=== PATIENT | female | born 1980 | race Caucasian/White ===

== ENCOUNTER → 2016-10-16 | Outpatient (CLI) | payer BC ==
[~2016-10-16] MED LIST: CYCL10TA7 PO; GABA-112 PO; OMEP20CA9 PO; OXYC7.5T78 PO
[2016-10-16 12:29] LABS: BASO % 0.5 %; BASO ABS # 0.04 K/uL (0-0.2); COMPLETE YES; EOS % 1.3 %; HEMATOCRIT 41.2 % (37-47); IG% 0.1 %; LYMPH ABS # 1.35 K/uL (1.2-3.4); MEAN CELL VOLUME 93.2 fL (80-100); MEAN CORPUSCULAR HEMOGLOBIN 32.4 pg (25-34); MEAN CORPUSCULAR HGB CONC 34.7 g/dl (32-36); MONO % 6.6 %; NEUT % 75.5 %; PLATELET COUNT 302 K/uL (130-400); RED BLOOD COUNT 4.42 M/uL (4.2-5.4); WHITE BLOOD COUNT 8.43 K/uL (4.8-10.8)
[2016-10-16 13:13] LABS: CREATININE 0.92 mg/dl (0.60-1.20); TOTAL IRON BINDING CAPACITY 382 mcg/dl (250-450)
[2016-10-16 13:34] LABS: URINE APPEARANCE CLEAR (CLEAR); URINE BILIRUBIN NEG (NEG); URINE COLOR YELLOW; URINE EPITHELIAL CELL AUTO >30 /lpf (0-5); URINE NITRITE NEG (NEG); URINE SPECIFIC GRAVITY 1.018 (1.000-1.030); UROBILINOGEN NEG (NEG)
[2016-10-16 13:52] LABS: MANUAL MICROSCOPIC REQUIRED? NO; REVIEW REQ? NO
== END | disposition home or self-care (01) ==
LOC: C.LAB1850 11:27
PROVIDERS: ATTEND Internal Medicine Rheumatology
DX: M54.16 Radiculopathy, lumbar region (principal); M79.7 Fibromyalgia; R76.8 Other specified abnormal immunological findings in serum; Q79.6 Ehlers-Danlos syndromes; E55.9 Vitamin D deficiency, unspecified

== ENCOUNTER → 2017-04-06 | Outpatient (CLI) | payer BC | END | disposition home or self-care (01) | LOC: C.LAB1850 14:36 | PROVIDERS: ATTEND Internal Medicine Rheumatology | DX: R76.8 Other specified abnormal immunological findings in serum (principal); Q79.6 Ehlers-Danlos syndromes; E55.9 Vitamin D deficiency, unspecified ==

== ENCOUNTER 2019-09-08 06:29 | Observation (INO) ==
--- NOTE | 2019-09-01 22:25 | PAT Medication Instructions ---
Medication Instructions Date of Service September 01, 2019 Home Medications Medication Instructions Recorded baclofen 20 mg tablet 20 mg PO TID #90 tab 04/29/19 gabapentin 600 mg tablet 1,200 mg PO TID 90 Days #540 tab 04/29/19 sumatriptan succinate 100 mg tablet 100 mg PO .COMPLEX 30 Days #9 tab 07/30/19 clindamycin HCl 300 mg capsule 300 mg PO TID 21 Days #63 cap 08/19/19 oxycodone-acetaminophen 5 mg-325 1 tab PO Q4H PRN 3 Days #18 tab 08/19/19 mg tablet propranolol 160 mg capsule,24 160 mg PO HS 30 Days #30 cap 09/01/19 hr,extended release acetaminophen 500 mg capsule 500 mg PO UD PRN baclofen 20 mg tablet 20 mg PO TID calcium citrate 250 mg calcium-vitamin D3 200 unit tablet 1 tab PO DAILY etodolac 500 mg tablet 500 mg PO BID fexofenadine 180 mg tablet 180 mg PO QDL fremanezumab-vfrm 225 mg/1.5 mL subcutaneous syringe 225 mg SUBCUT UD gabapentin 600 mg tablet 1,200 mg PO TID mometasone 50 mcg/actuation nasal spray 1 sprays DAILY multivitamin 1 tab PO DAILY omeprazole 20 mg capsule,delayed release 20 mg PO QAM tramadol 50 mg tablet 50 mg PO UD PRN sumatriptan succinate 100 mg tablet 100 mg PO .COMPLEX clindamycin HCl 300 mg capsule 300 mg PO TID oxycodone-acetaminophen 5 mg-325 mg tablet 1 tab PO Q4H PRN atorvastatin 20 mg PO QPM levothyroxine 50 mcg PO QAM venlafaxine 75 mg PO QPM venlafaxine 150 mg PO QPM propranolol 160 mg capsule,24 hr,extended release 160 mg PO HS Continue as directed fremanezumab-vfrm 225 mg/1.5 mL subcutaneous syringe 225 mg SUBCUT UD clindamycin HCl 300 mg capsule 300 mg PO TID ASK your surgeon for instructions etodolac 500 mg tablet 500 mg PO BID DO NOT take the morning of surgery baclofen 20 mg tablet 20 mg PO TID calcium citrate 250 mg calcium-vitamin D3 200 unit tablet 1 tab PO DAILY fexofenadine 180 mg tablet 180 mg PO QDL multivitamin 1 tab PO DAILY Take morning of surgery With a small sip of water, OTHERWISE NOTHING TO EAT OR DRINK AFTER MIDNIGHT: acetaminophen 500 mg capsule 500 mg PO UD PRN (if needed, may be taken up to four hours before surgery) gabapentin 600 mg tablet 1,200 mg PO TID mometasone 50 mcg/actuation nasal spray 1 sprays DAILY omeprazole 20 mg capsule,delayed release 20 mg PO QAM tramadol 50 mg tablet 50 mg PO UD PRN (if needed, may be taken up to four hours before surgery) sumatriptan succinate 100 mg tablet 100 mg PO .COMPLEX (if needed) oxycodone-acetaminophen 5 mg-325 mg tablet 1 tab PO Q4H PRN (if needed, may be taken up to four hours before surgery) levothyroxine 50 mcg PO QAM Take evening before surgery acetaminophen 500 mg capsule 500 mg PO UD PRN (if needed) baclofen 20 mg tablet 20 mg PO TID gabapentin 600 mg tablet 1,200 mg PO TID tramadol 50 mg tablet 50 mg PO UD PRN (if needed) sumatriptan succinate 100 mg tablet 100 mg PO .COMPLEX (if needed) oxycodone-acetaminophen 5 mg-325 mg tablet 1 tab PO Q4H PRN (if needed) atorvastatin 20 mg PO QPM venlafaxine 75 mg PO QPM venlafaxine 150 mg PO QPM propranolol 160 mg capsule,24 hr,extended release 160 mg PO HS Other Notes If you have any questions please call us at [phone] or [phone] or [phone] or [phone]
--- NOTE | 2019-09-02 08:55 | Anesthesiology Consultation ---
Date of Service September 02, 2019 Assessment & Plan (1) Encounter for pre-operative examination: Chart Review Chart Review: Acceptable Risk for Surgery (pending labs) History Surgery Operation Date: 09/08/19 07:30 Proposed Procedures p Bilateral Reduction Mammoplasty with Free Nipple Graft - Nelly Dawson MD Height/Weight Height: 5 ft 8 in Weight: 106.9 kg Allergies Allergy/AdvReac Type Severity Reaction Status Date / Time amoxicillin Allergy Unknown RASH AND Verified 08/29/19 12:53 DIARRHEA Bactrim Allergy Unknown UNKNOWN Verified 07/26/15 11:44 codeine Allergy Unknown RASH AND Verified 08/29/19 12:53 ITCHINESS hydromorphone Allergy Unknown Hives Verified 08/29/19 12:53 Penicillins Allergy Unknown RASH AND Verified 08/29/19 12:53 DIARRHEA sulfamethoxazole Allergy Unknown SWELLING Verified 08/29/19 12:53 OF LIPS AND ITCHY trimethoprim Allergy Unknown SWELLING Verified 08/29/19 12:53 LIF LIPS AND ITCHY doxycycline AdvReac Unknown Diarrhea Verified 08/29/19 12:53 Medications Home Medications Medication Instructions Recorded Confirmed Last Taken acetaminophen 500 mg capsule 500 mg PO UD PRN cap 04/29/19 08/29/19 Unknown baclofen 20 mg tablet 20 mg PO TID #90 tab 04/29/19 08/29/19 08/29/19 calcium citrate 250 mg 1 tab PO DAILY tab 04/29/19 08/29/19 Unknown calcium-vitamin D3 200 unit tablet etodolac 500 mg tablet 500 mg PO BID tab 04/29/19 08/29/19 08/29/19 fexofenadine 180 mg tablet 180 mg PO QDL tab 04/29/19 08/29/19 08/29/19 fremanezumab-vfrm 225 mg/1.5 mL 225 mg SUBCUT UD ml 04/29/19 08/29/19 08/27/19 subcutaneous syringe gabapentin 600 mg tablet 1,200 mg PO TID 90 Days #540 tab 04/29/19 08/29/19 08/29/19 mometasone 50 mcg/actuation nasal 1 sprays DAILY #1 gm 04/29/19 08/29/19 Unknown spray multivitamin 1 tab PO DAILY 04/29/19 08/29/19 Unknown omeprazole 20 mg capsule,delayed 20 mg PO QAM cap 08/03/1208/29/19 08/29/19 release tramadol 50 mg tablet 50 mg PO UD PRN tab 07/03/19 08/29/19 Unknown sumatriptan succinate 100 mg tablet 100 mg PO .COMPLEX 30 Days #9 tab 07/30/19 08/29/19 Unknown clindamycin HCl 300 mg capsule 300 mg PO TID 21 Days #63 cap 08/19/19 08/29/19 Unknown oxycodone-acetaminophen 5 mg-325 1 tab PO Q4H PRN 3 Days #18 tab 08/19/19 08/29/19 Unknown mg tablet atorvastatin 20 mg PO QPM 08/29/19 08/29/19 08/28/19 levothyroxine 50 mcg PO QAM 08/29/19 08/29/19 08/29/19 venlafaxine 75 mg PO QPM 08/29/19 08/29/19 08/28/19 venlafaxine 150 mg PO QPM 08/29/19 08/29/19 08/28/19 propranolol 160 mg capsule,24 160 mg PO HS 30 Days #30 cap 09/01/19 Unknown hr,extended release Past Medical History Medical History Allergy-induced asthma Arthritis NECK AND BACK Atypical hyperplasia of both breasts (Chronic) Carpal tunnel syndrome, left Degenerative disc disease NECK AND BACK Roseanne-Danlos syndrome, benign hypermobile form (Chronic) Fibromyalgia (Chronic) High cholesterol Lumbar radiculopathy (Chronic) Migraine without aura, not intractable, without status migrainosus (Chronic) Nausea and vomiting after administration of anesthetic agent NAUSEA Polyneuropathy (Chronic) Restless leg NO MEDS/MONITORS Thyroid nodule 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) Exercise / Class Metabolic Activity III < 4 Walking/Shop/Light housework (Limited by back pain, uses cane for ambulation, does not do stairs, no CP or SOB with ambulation on one level) Past Family History Family History Grandmother Family history of breast cancer Other Family history of colon cancer Past Surgical History Surgical History History of appendectomy (Resolved) History of back surgery X2 LUMBAR FUSION AND REVISION History of carpal tunnel surgery (Resolved) R History of endoscopy History of partial hysterectomy Status post insertion of spinal cord stimulator HX OF X2 INSERTION AND REVISION : CURRENT LOCATION - LEFT BUTTOCK AREA Past Anesthesia History No Hx of Anesthesia Complications (other than PONV) and No Family Hx of Anesthesia Complications History of PONV No Hx of Motion Sickness and History of PONV Social History Smoking Status: Former smoker Do You Dip or Chew Tobacco: No Smoking End Date: TEENAGER Hx Alcohol Use: No Hx Substance Use: No substance use type: does not use Review of Systems Pt denies any recent chest pain, shortness of breath, palpitations, cough, fever or URI. Physical Exam Vital Signs BP: 105/73 P: 82bpm SPO2: 95%RA T: 98.4 F R: 14 ENMT Mouth: no dental restorations, no chipped teeth and no loose teeth Thyromental Distance: < 3.5 Finger Breadths (3) Mallampati Class: III Neck normal visual inspection; neck extension not limited Respiratory normal respiratory effort Auscultation: lungs clear to auscultation bilaterally Cardiovascular Rate/Rhythm: regular rate and regular rhythm Heart Sounds: no murmur Testing Laboratory Results PT 10.2 Seconds (9.0-12.0) 09/02/19 08:54 INR 1.0 (0.9-1.1) 09/02/19 08:54 APTT 27.3 Seconds (21.0-31.0) 09/02/19 08:54 07/22/19 WBC: 6.8 H/H: 13.2/41.3 PLATELETS: 371 SODIUM: 143 POTASSIUM: 4.4 CHLORIDE: 106 CO2: 23 BUN: 12 CREATININE: 0.9 GLUCOSE: 95
[2019-09-02 11:04] LABS: Partial Thromboplastin Time 27.3 Seconds (21.0-31.0); Prothrombin Time 10.2 Seconds (9.0-12.0)
[2019-09-08] MEDS: fentaNYL citrate 100 MCG/2 ML VIAL IV PRN ×2 (01:15→11:30)
[~2019-09-08 06:29] MED LIST changes: +CLINDAMYCIN 600 MG/54 ML BAG IV SCH; -CYCL10TA7 PO; -GABA-112 PO; +LR 15ML/HR IV SCH; -OMEP20CA9 PO; -OXYC7.5T78 PO
[2019-09-08] MEDS ORDERED: fentaNYL citrate 100 MCG/2 ML VIAL ONE ×2 (06:54→11:25)
[2019-09-08] MEDS ORDERED: LIDOCAINE HCL 2% 2 ML VIAL/AMP(20MG/ML) INFIL ONE (06:54)
[2019-09-08] MEDS ORDERED: PROPOFOL IV EMULSION 10 MG/ML 20 ML VIAL IV ONE (06:54)
[2019-09-08] MEDS ORDERED: DEXAMETHASONE SOD INJ 4 MG/ML VIAL ONE (06:54)
[2019-09-08] MEDS ORDERED: ONDANSETRON INJ 2 MG/ML 2 ML VIAL ONE ×2 (06:54→11:25)
[2019-09-08] MEDS ORDERED: MIDAZOLAM HCL 1 MG/ML 2ML VIAL ONE (06:55)
[2019-09-08] MEDS ORDERED: KETAMINE HCL INJ 50 MG/ML 10 ML VIAL ONE (07:06)
[2019-09-08] MEDS ORDERED: HYDROmorphone INJ 2 MG/ML SYR/VIAL ONE (07:06)
[2019-09-08] MEDS ORDERED: ACETAMINOPHEN 1000 MG/100 ML IV IV ONE (07:06)
[2019-09-08] MEDS ORDERED: LIDOCAINE HCL 1% 20 ML VIAL ONE (07:09)
[2019-09-08] MEDS ORDERED: LIDOCAINE/EPINEPHRINE 1% 20 ML VIAL ONE (07:09)
[2019-09-08] MEDS ORDERED: EPINEPHrine INJ 1 MG/ML AMP ONE (07:09)
[2019-09-08] MEDS ORDERED: BUPIVACAINE 0.25% 30 ML VIAL ONE (07:09)
--- NOTE | 2019-09-08 07:22 | History & Physical Bridge Note ---
Date of Service September 08, 2019 History & Physical Bridge Note I have examined the patient, reviewed the History & Physical and in the interval since the performance of the History & Physical I have noted the following changes of clinical significance: patient cancelled appointment with Dr. Javier due to GI illness, rescheduled for September. would like to be as small as I can reasonably make her.
[2019-09-08] MEDS ORDERED: NEOSTIGMINE METHYLSULFATE 5 MG/5 ML SYR ONE (08:55)
[2019-09-08] MEDS ORDERED: GLYCOPYRROLATE 0.2 MG/ML VIAL ONE (08:55)
[2019-09-08] MEDS ORDERED: ROCURONIUM BROMIDE 10 MG/ML 5 ML VIAL ONE (08:55)
--- NOTE | 2019-09-08 10:29 | Post Operative Brief Note ---
Immediate Post Op Note v1 Date of Surgery September 08, 2019 Pre & Post Diagnosis Operation Date: 09/08/19 07:30 Pre-Op Diagnosis: Symptomatic Macromastia Post-Op Diagnosis: Symptomatic Macromastia I identified the patient and participated in the time-out.: Yes Procedure Operation Date: 09/08/19 07:30 Actual Procedures p Bilateral Reduction Mammoplasty with Free Nipple Graft(Bilateral) - Nelly Dawson MD Surgeon Nelly Dawson MD Systems Operator Jazmyne Barnett PA-C Estimated Blood Loss 25 Findings Consistent with Post-Op Diagnosis Specimens 1258 grams right breast 1240 grams left breast Drains Jeremy[place] Drain (Bilateral breast)
[2019-09-08] MEDS ORDERED: ePHEDrine sulfate 50 MG/ML AMP IV PRN (11:25)
[2019-09-08] MEDS ORDERED: PROMETHAZINE HCL 12.5 MG in SODIUM CHLORIDE 0.9% 50 ML IV PRN ×2 (11:25→13:08)
[2019-09-08] MEDS ORDERED: ONDANSETRON INJ 2 MG/ML 2 ML VIAL IV PRN ×2 (11:25→13:08)
[2019-09-08] MEDS ORDERED: FLUMAZENIL 0.1 MG/1 ML 10 ML VIAL IV PRN (11:25)
[2019-09-08] MEDS ORDERED: KETOROLAC 30 MG/ML VIAL IV PRN (11:25)
[2019-09-08] MEDS ORDERED: ATROPINE SULFATE 0.1 MG/ML 10ML SYR IV PRN (11:25)
[2019-09-08] MEDS ORDERED: NALOXONE HCL 0.4 MG/1 ML VIAL/CARP IV PRN (11:25)
[2019-09-08] MEDS ORDERED: LABETALOL HCL IV 5 MG/ML 20ML IV PRN (11:25)
[2019-09-08] MEDS ORDERED: ACETAMINOPHEN 1,000 MG/100 ML VIAL IV PRN (11:30)
--- NOTE | 2019-09-08 11:51 | Operative Report ---
PG Post Operative Report Pre & Post Diagnosis Operation Date: 09/08/19 07:30 Pre-Op Diagnosis: Symptomatic Macromastia Post-Op Diagnosis: Symptomatic Macromastia I identified the patient and participated in the time-out.: Yes Procedure Operation Date: 09/08/19 07:30 Actual Procedures p Bilateral Reduction Mammoplasty with Free Nipple Graft(Bilateral) - Nelly Dawson MD Surgeon Nelly Dawson MD Emergency Services Dispatcher Jazmyne Barnett PA-C Estimated Blood Loss 25 Findings Consistent with Post-Op Diagnosis Specimens right breast tissue 1258 grams left breast tissue 1240 grams Drains JPx2 Anesthesia Type General Complications none Disposition Disposition: Recovery Room Indications back, neck and shoulder pain due to macromastia Description of Procedure The risks, benefits and alternatives of the procedure were explained to the patient who agreed and signed consent. She was identified and marked in the preoperative holding area. She was brought to the operating room where she was positioned supine and placed under general anesthesia without incident. Surgical site markings were again reassessed. I began with the left breast. 1% lidocaine with epinephrine was used to anesthetize the planned incisions as well as the nipple areolar complex. A breast tourniquet was applied using the Joan clamp and lap sponge. A 42 mm cookie cutter was used to circumscribe the nipple-areolar complex. The nipple-areolar complex was then removed as a full thickness graft and placed on the back table in saline soaked sponge. At this point, tourniquet was released and the inframammary fold incision was made using 15 blade scalpel. Electrocautery was used to deepen the incision through subcutaneous fat and breast parenchyma down to chest wall. Care was taken to perform this in a bevelled direction ligating vessels as needed and achieving hemostasis with electrocautery. Once the breast was mostly undermined, the superior incision was then made to the inferior aspect of the keyhole incision. This was performed using a 15 blade scalpel. Incision was then deepened using electrocautery again full thickness through the breast. A similar incision was made laterally. Centrally, the skin was incised using electrocautery and additional breast parenchyma was resected again in a beveled fashion in order to retain some projection of the breast. Tissue was passed off for weighing. Additional resection was performed until we achieved the desired size and the wound was able to be closed with minimal tension. Total resection weight on the left was 1258 grams. Hemostasis was achieved with electrocautery 0.25% Marcaine plain was used to anesthetize the incisions as well as pectoralis fascia. A 15 Urdu Kenji drain was brought out through a separate stab incision laterally toward the axilla. The keyhole was then incised using 15 blade scalpel and deepithelialized. T-junction was brought together using 2-0 Vicryl suture. Closure was begun first lateral to medial using 2-0 Vicryl deep dermal sutures and then medial to lateral using 2-0 Vicryl deep dermal sutures. Vertical limb was closed using a combination of 2-0 Vicryl deep dermal sutures and a 3-0 PDS interrupted dermal sutures. The inframammary fold incision was closed using 2-0 PDO deep dermal running Quill suture. The vertical limb was then closed using 3-0 Monocryl running subcuticular suture. Nipple areolar complex was inspected and thinned using a curved iris scissor. It was placed in the recipient bed and sutured into place using 4-0 silk tie over bolster sutures and 4-0 chromic interrupted sutures. A similar procedure was undertaken on the right side. Total resection weight was 1258 grams on the right. There was reasonable symmetry at the close of the case. No complications. Dermabond Prineo was applied to the incisions. Dry dressing followed by a surgical bra were placed. The patient was awakened and transferred to the recovery room in satisfactory condition. Jazmyne Barnett PA-C was present and scrubbed throughout the entire procedure and was instrumental in providing retraction, preparing the nipple graft and assisting in simultaneous wound closure. I attest to the content of the Intraoperative Record and any orders documented therein. Any exceptions are noted below.
--- NOTE | 2019-09-08 12:08 | Anesthesiology Progress Note ---
Date of Service September 08, 2019 Anesthesia Post Procedure Vital Signs Vital Signs: Temp Pulse Pulse Resp BP BP Pulse Ox 09/08/19 11:50 83 14 122/90 97 09/08/19 11:40 97 H 16 128/98 98 09/08/19 11:30 92 H 14 146/88 H 100 09/08/19 11:20 85 14 131/99 99 09/08/19 11:13 36.3 C L 87 16 116/95 100 09/08/19 07:05 36.9 C 80 18 117/85 96 Pain Intensity Lower Back: Pain Intensity: 5 Bilateral Breast: Pain Intensity: 5 Transfer of Care Handoff Completed per policy Notes Mental Status: alert / awake / arousable Patient Amnestic to Procedure: Yes Nausea / Vomiting: adequately controlled Pain: adequately controlled Airway Patency, RR, SpO2: stable & adequate BP & HR: stable & adequate Hydration State: stable & adequate Anesthetic Complications: no major complications apparent
[2019-09-08] MEDS ORDERED: OXYCODONE/ACETAMINOPHEN 5mg/325mg TAB PO PRN (13:08)
[2019-09-08] MEDS ORDERED: DiphenhydrAMINE HCL 50 MG/ML VIAL IV PRN (13:08)
[2019-09-08] MEDS ORDERED: FREMANEZUMAB VFRM 225 MG SQ SCH (13:08)
[2019-09-08] MEDS ORDERED: ACETAMINOPHEN 325 MG TAB PO PRN (13:08)
[2019-09-08] MEDS ORDERED: OXAZEPAM 10 MG CAPSULE PO PRN (13:08)
[2019-09-08] MEDS ORDERED: TRAMADOL HCL 50 MG TABLET PO PRN (13:08)
[2019-09-08] MEDS ORDERED: FEXOFENADINE HCL 180 MG TAB PO SCH (13:30)
[2019-09-08] MEDS: BACLOFEN 20 MG TAB PO SCH ×2 (14:43→20:50)
[2019-09-08] MEDS: GABAPENTIN 600 MG TAB PO SCH ×2 (14:43→20:51)
[2019-09-08] MEDS: OXYCODONE/ACETAMINOPHEN 5mg/325mg TAB PO PRN ×2 (14:45→20:50)
--- NOTE | 2019-09-08 15:27 | Surgery Progress Note ---
Date of Service September 08, 2019 Assessment & Plan (1) Macromastia: s/p bilateral breast reduction 1. will remove drains tomorrow 2. consent obtained for HIV testing 3. anticipate d/c in the AM Subjective Patient resting comfortably. Offers no concerns. Physical Exam Constitutional: WD/WN, vitals as above no acute distress Skin: + incision (CDI) Results & Data Vital Signs (Past 12 Hours) Vital Signs Temp Pulse Pulse Resp BP BP Pulse Ox 09/08/19 14:44 37.1 C 87 16 109/70 94 09/08/19 13:30 36.9 C 91 H 16 106/68 92 09/08/19 13:00 36.9 C 96 H 16 113/73 92 09/08/19 12:35 37.2 C 93 H 16 119/83 94 09/08/19 12:25 85 16 125/90 95 09/08/19 12:10 36.7 C 87 16 127/87 98 09/08/19 12:00 85 16 129/90 97 09/08/19 11:50 83 14 122/90 97 09/08/19 11:40 97 H 16 128/98 98 09/08/19 11:30 92 H 14 146/88 H 100 09/08/19 11:20 85 14 131/99 99 09/08/19 11:13 36.3 C L 87 16 116/95 100 09/08/19 07:05 36.9 C 80 18 117/85 96 PG Care Time/CCT Total # of Minutes Spent Total Time Spent with Patient: Total time spent is greater than 50% in coordination of care (as documented) at patient's floor/unit and/or counseling patient:
[2019-09-08] MEDS: CLINDAMYCIN 600 MG in DEXTROSE 5% 50 ML IV SCH (15:47)
[2019-09-08] MEDS: LACTATED RINGER'S 1,000 ML IV SCH (18:10)
[2019-09-08] MEDS ORDERED: ETODOLAC 500 MG PO SCH (21:00)
[2019-09-08] MEDS ORDERED: VENLAFAXINE HCL XR 75 MG CAPXR PO SCH (21:00)
[2019-09-08] MEDS ORDERED: ATORVASTATIN 20 MG TAB PO SCH (21:00)
[2019-09-08] MEDS ORDERED: VENLAFAXINE HCL XR 150 MG CAPXR PO SCH (21:00)
[2019-09-09] MEDS: CLINDAMYCIN 600 MG in DEXTROSE 5% 50 ML IV SCH (00:11)
[2019-09-09] MEDS: OXYCODONE/ACETAMINOPHEN 5mg/325mg TAB PO PRN ×3 (01:05→09:02)
[2019-09-09] MEDS ORDERED: LEVOTHYROXINE SODIUM 50 MCG TABLET PO SCH (06:30)
[2019-09-09 06:53] LABS: Hematocrit (blood only) 35.3 % (37-47); Hemoglobin 11.5 g/dL (12.0-16.0); Mean Corpuscular Hemoglobin 30.8 pg (25-34); Mean Corpuscular Hgb Conc 32.6 g/dL (32-36); Mean Corpuscular Volume 94.6 fL (80-100); Mean Platelet Volume 8.7 fL (7.4-10.4); Platelet Count 343 K/uL (130-400); RDW Coefficient of Variation 12.8 % (11.5-14.5); RDW Standard Deviation 44.1 fL (36.4-46.3); Red Blood Count 3.73 M/uL (4.2-5.4); White Blood Count 14.23 K/uL (4.8-10.8)
[2019-09-09] MEDS: LACTATED RINGER'S 1,000 ML IV SCH (07:36)
--- NOTE | 2019-09-09 08:10 | Anesthesiology Progress Note ---
Date of Service September 09, 2019 Anesthesia Post Procedure Vital Signs Vital Signs: Temp Pulse Pulse Resp BP Pulse Ox 09/09/19 07:29 36.6 C 84 16 128/83 92 09/09/19 03:55 37.0 C 83 16 100/62 93 09/08/19 23:17 36.4 C L 94 H 16 124/78 95 09/08/19 20:03 36.9 C 88 18 101/65 92 09/08/19 16:41 36.8 C 85 16 103/65 92 09/08/19 15:30 36.9 C 83 18 101/65 93 09/08/19 14:44 37.1 C 87 16 109/70 94 09/08/19 13:30 36.9 C 91 H 16 106/68 92 09/08/19 13:00 36.9 C 96 H 16 113/73 92 09/08/19 12:35 37.2 C 93 H 16 119/83 94 09/08/19 12:25 85 16 125/90 95 09/08/19 12:10 36.7 C 87 16 127/87 98 09/08/19 12:00 85 16 129/90 97 09/08/19 11:50 83 14 122/90 97 09/08/19 11:40 97 H 16 128/98 98 09/08/19 11:30 92 H 14 146/88 H 100 09/08/19 11:20 85 14 131/99 99 09/08/19 11:13 36.3 C L 87 16 116/95 100 Notes Mental Status: alert / awake / arousable Patient Amnestic to Procedure: Yes Nausea / Vomiting: adequately controlled Pain: adequately controlled Airway Patency, RR, SpO2: stable & adequate BP & HR: stable & adequate Hydration State: stable & adequate Anesthetic Complications: no major complications apparent and Pt Satisfied with anesthetic care
[2019-09-09] MEDS: BACLOFEN 20 MG TAB PO SCH (08:57)
[2019-09-09] MEDS: GABAPENTIN 600 MG TAB PO SCH (08:57)
--- NOTE | 2019-09-09 08:59 | Surgery Progress Note ---
Date of Service September 09, 2019 Assessment & Plan (1) Macromastia: POD # 1 s/p Bilateral Reduction Mammoplasty with Free Nipple Graft(Bilateral) Patient is doing well and was reassured that everything looks as expected. Drains x 2 removed without issue. Patient has transitioned to PO pain medication. She is tolerating a regular diet without issue. She is voiding on her own. Patient ok for discharge to home today. We reviewed discharged instructions. Patient aware that she is to keep dressings dry and in place until office visit tomorrow. Patient to follow-up in office tomorrow- all questions answered. Subjective Sara is resting in bed- she reports post-op discomfort. She was unable to get much sleep last night. She has been tolerating a regular diet and is voiding on own. Drains in place. She does report that she is happy with her breast size. Physical Exam Physical Exam: On physical exam- drains x [address] with serosang drainage. Surgical bra in place- unhooked and surgical dressings in place. Surgical dressings are dry and intact. Drains x 2 removed at bedside without issue and surgical dressings reinforced. Results & Data Vital Signs (Past 12 Hours) Vital Signs Temp Pulse Resp BP Pulse Ox 09/09/19 07:29 36.6 C 84 16 128/83 92 09/09/19 03:55 37.0 C 83 16 100/62 93 09/08/19 23:17 36.4 C L 94 H 16 124/78 95 PG Care Time/CCT Total # of Minutes Spent Total Time Spent with Patient: Total time spent is greater than 50% in coordination of care (as documented) at patient's floor/unit and/or counseling patient:
[2019-09-09] MEDS ORDERED: ENOXAPARIN INJ 40 MG/0.4 ML SYR SQ SCH (09:00)
[2019-09-09] MEDS ORDERED: CALCIUM 600MG + VIT D 400 IU TAB PO SCH (09:00)
[2019-09-09] MEDS ORDERED: PANTOprazole 40 MG TAB PO SCH (09:00)
[2019-09-09] MEDS ORDERED: MULTIVITAMIN TAB PO SCH (09:00)
--- NOTE | 2019-09-09 14:10 | Discharge Summary ---
Date of Service September 09, 2019 Admission HPI Per Admitting Provider please see admission H & P. Admission Exam Per Admitting Provider Please see admission H & P. Principal Diagnosis Symptomatic Bilateral Macromastia Discharge Exam On physical exam- support bra in place - opened to exam surgical dressings. Surgical dressings clean and dry. ASPEN drains x 2 removed at bedside. Discharge Data Allergies Allergy/AdvReac Type Severity Reaction Status Date / Time amoxicillin Allergy Unknown RASH AND Verified 09/08/19 12:46 DIARRHEA Bactrim Allergy Unknown UNKNOWN Verified 09/08/19 12:46 codeine Allergy Unknown RASH AND Verified 09/08/19 12:46 ITCHINESS hydromorphone Allergy Unknown Hives Verified 09/08/19 12:46 Penicillins Allergy Unknown RASH AND Verified 09/08/19 12:46 DIARRHEA sulfamethoxazole Allergy Unknown SWELLING Verified 09/08/19 12:46 OF LIPS AND ITCHY trimethoprim Allergy Unknown SWELLING Verified 09/08/19 12:46 LIF LIPS AND ITCHY doxycycline AdvReac Unknown Diarrhea Verified 09/08/19 12:46 Procedures Performed Operation Date: 09/08/19 07:30 Actual Procedures p Bilateral Reduction Mammoplasty with Free Nipple Graft(Bilateral) - Nelly Dawson MD Hospital Course (1) Macromastia: Sara is a 39-year-old female with Bilateral Symptomatic Macromastia. She was taken to the OR and underwent Bilateral Reduction Mammoplasty with Free Nipple Graft(Bilateral). There were no intraoperative complications. She was taken to recovery and transferred to med/surg for observation. On POD #1, she was feeling a bit sore, but overall doing well. She was tolerating a regular diet, voiding on her own, and ambulating without issue. On exam, her vitals were stable. Surgical dressings were dry. Her drains were removed without issue at bedside. Discharge instructions were reviewed with patient. She was discharged home with instructions to follow-up in the office in 1 day. All questions answered. Total Time Total Time Spent Total Time Spent (In Minutes): 5 Discharge Plan Discharge Items Patient Disposition: Home - Self-Care Reason For Visit: Symptomatic Macromastia Discharge Diagnosis: Symptomatic Macromastia Activity: As commented below Non-emergency contact: Surgeon Call non-emergency contact if: you have any medication questions, your pain is not controlled, your temperature is above 101.5, your wound has increased redness and your wound has increased drainage Follow-up/Referrals: Raul Potter PA-C [Primary Care Provider] - Diet: Regular Addtl Attending Provider Instructions: ACTIVITY RECOMMENDATIONS: __Normal activities _X_No bending, lifting or straining __No driving X__Driving allowed when you are off pain medications _X_Walking permitted __You should have help at home for ___ days DRESSINGS: __No dressings required X__Keep dressings dry/in place until first office visit __Remove dressings ___ and leave dressings off __Apply ice ___ days __Remove dressings and reapply garment __Apply antibiotic ointment (Bacitracin, Neosporin, etc) to wounds 3-4 times/day for 10 days BATHING: X__Keep dressings dry _X_Sponge bathing permitted- Keep water away from surgical dressings. __Showering permitted _X_No swimming, hot tubs or soaking in a tub MEDICATIONS: Resume previous medications unless instructed otherwise by your surgeon. _X_Do not use aspirin, Motrin, Advil or Ibuprofen as these may promote bleeding. Please use Tylenol. _X_Prescription(s) provided: Both pain prescription and antibiotic prescription provided at last office visit. Patient aware that she is to HOLD TRAMADOL while taking prescription Percocet. She is aware that she is to start her oral antibiotic when she is discharged. SPECIAL CARE INSTRUCTIONS: * It is normal to have a mild fever after surgery. If your temperature is higher than 101.5 degrees F, please call the office at [phone]. * Constipation is a typical side effect of pain medication. An [id number] stool softener will help relieve this. * Leaking around surgical drains may occur and should not cause concern. Sometimes these drains become clogged. If this happens, remove the bulb and milk the clot out of the tube, then replace the bulb. * Drainage from wounds after liposuction is normal and should be expected. Garments will become soiled. You should protect furniture and bedding. This drainage should mostly subside within 2-3 days. Leave garments in place unless instructed to remove them. * If you have unusual drainage from a wound or are concerned you have an infection or have any questions or concerns, please call the office at [phone]. FOLLOW UP VISIT: If not already scheduled, please call the office, , when you return home after surgery to schedule an appointment to be seen in _1__ day. Pending Studies at Discharge: Yes Studies:: Pathology report. Stand-Alone Forms: [facility] [employer], Smoking Cessation Medications and DC Order Prescriptions: Continued tramadol 50 mg tablet 50 mg PO UD PRN (Reason: Pain) RF: 0 Hold Instructions: Hold while taking Percocet. Patient is aware. gabapentin 600 mg tablet 1,200 mg PO TID 90 Days Qty: 540 RF: 1 baclofen 20 mg tablet 20 mg PO TID Qty: 90 RF: 5 sumatriptan succinate 100 mg tablet 100 mg PO .COMPLEX 30 Days Qty: 9 RF: 5 propranolol 160 mg capsule,extended release 24 hr 160 mg PO HS 30 Days Qty: 30 RF: 3 acetaminophen 500 mg capsule 500 mg PO UD PRN (Reason: Pain) RF: 0 calcium citrate-vitamin D3 250 mg calcium- 200 unit tablet 1 tab PO DAILY RF: 0 etodolac 500 mg tablet 500 mg PO BID RF: 0 omeprazole 20 mg capsule,delayed release(DR/EC) 20 mg PO QAM RF: 0 mometasone 50 mcg/actuation spray,non-aerosol 1 sprays DAILY Qty: 1 RF: 0 fexofenadine 180 mg tablet 180 mg PO QDL RF: 0 multivitamin tablet 1 tab PO DAILY RF: 0 fremanezumab-vfrm 225 mg/1.5 mL syringe 225 mg subcut UD RF: 0 oxycodone-acetaminophen [Percocet] 5-325 mg tablet 1 tab PO Q4H PRN (Reason: pain) 3 Days Qty: 18 RF: 0 clindamycin HCl 300 mg capsule 300 mg PO TID 21 Days Qty: 63 RF: 0 venlafaxine 75 mg capsule,extended release 24hr 75 mg PO QPM RF: 0 venlafaxine 150 mg capsule,extended release 24hr 150 mg PO QPM RF: 0 levothyroxine 50 mcg Capsule 50 mcg PO QAM RF: 0 atorvastatin 20 mg Tablet 20 mg PO QPM RF: 0 Discharge Orders: Discharge Order (Routine); Ordered 09/09/19 Ordered By: Carlene Cuevas Admission Data Admit Date/Time: 09/08/19 11:18 Attending Provider: Nelly Dawson Admit Provider: Nelly Dawson Primary Care Provider: Raul Potter Other Interventions: Discharge Summary Assessment (RN) Last Done: 09/09/19 09:10 DC Date/Time DO NOT enter until pt leaves facility: 09/09/19 10:41
--- NOTE | 2019-09-09 14:20 | Surgery Progress Note ---
Date of Service September 09, 2019 Results & Data Vital Signs (Past 12 Hours) Vital Signs Temp Pulse Resp BP Pulse Ox 09/09/19 09:10 36.6 C 84 16 128/83 92 09/09/19 07:29 36.6 C 84 16 128/83 92 09/09/19 03:55 37.0 C 83 16 100/62 93 09/08/19 23:17 36.4 C L 94 H 16 124/78 95 PG Care Time/CCT Total # of Minutes Spent Total Time Spent with Patient: Total time spent is greater than 50% in coordination of care (as documented) at patient's floor/unit and/or counseling patient:
== END 2019-09-09 10:41 | disposition home or self-care (01) ==
LOC: 3N 06:29 → ASU 06:29

== ENCOUNTER 2022-01-18 10:51 | Inpatient (IN) ==
--- NOTE | 2022-01-04 15:53 | PAT Medication Instructions ---
Medication Instructions Date of Service January 04, 2022 Home Medications Medication Instructions Recorded fremanezumab-vfrm 225 mg/1.5 mL 225 mg SUBCUT MONTHLY 30 Days #1.5 08/02/21 subcutaneous syringe ml gabapentin 600 mg tablet 1,200 mg PO TID 90 Days #540 tab 09/20/21 naratriptan 2.5 mg tablet 2.5 mg PO .COMPLEX PRN #9 tab 11/21/21 propranolol 160 mg capsule,24 160 mg PO HS 90 Days #90 cap 11/21/21 hr,extended release baclofen 20 mg tablet 20 mg PO TID 90 Days #270 tab 01/02/22 acetaminophen 500 mg capsule 500 mg PO UD PRN calcium citrate 250 mg calcium-vitamin D3 5 mcg (200 unit) tablet 1 tab PO QPM etodolac 500 mg tablet 500 mg PO BID fexofenadine 180 mg tablet 180 mg PO QAM mometasone 50 mcg/actuation nasal spray 1 sprays INTRANASAL QAM multivitamin 1 tab PO QAM omeprazole 20 mg capsule,delayed release 20 mg PO QAM tramadol 50 mg tablet 50 mg PO UD PRN atorvastatin 20 mg tablet 20 mg PO QPM levothyroxine 50 mcg capsule 50 mcg PO QAM montelukast 10 mg tablet (Singulair) 10 mg PO QPM buspirone 10 mg tablet 10 mg PO TID fremanezumab-vfrm 225 mg/1.5 mL subcutaneous syringe 225 mg SUBCUT MONTHLY gabapentin 600 mg tablet 1,200 mg PO TID naratriptan 2.5 mg tablet 2.5 mg PO .COMPLEX PRN propranolol 160 mg capsule,24 hr,extended release 160 mg PO HS baclofen 20 mg tablet 20 mg PO TID venlafaxine 225 mg tablet,extended release 24 hr 225 mg PO HS ASK your surgeon for instructions etodolac 500 mg tablet 500 mg PO BID ASK your prescriber and surgeon fremanezumab-vfrm 225 mg/1.5 mL subcutaneous syringe 225 mg SUBCUT MONTHLY DO NOT take the morning of surgery fexofenadine 180 mg tablet 180 mg PO QAM multivitamin 1 tab PO QAM baclofen 20 mg tablet 20 mg PO TID Take morning of surgery With a small sip of water, OTHERWISE NOTHING TO EAT OR DRINK AFTER MIDNIGHT: acetaminophen 500 mg capsule 500 mg PO UD PRN (okay to take up to 4 hours prior to surgery if needed) mometasone 50 mcg/actuation nasal spray 1 sprays INTRANASAL QAM omeprazole 20 mg capsule,delayed release 20 mg PO QAM tramadol 50 mg tablet 50 mg PO UD PRN (okay to take up to 4 hours prior to surgery if needed) levothyroxine 50 mcg capsule 50 mcg PO QAM buspirone 10 mg tablet 10 mg PO TID gabapentin 600 mg tablet 1,200 mg PO TID naratriptan 2.5 mg tablet 2.5 mg PO .COMPLEX PRN (if needed) Take evening before surgery acetaminophen 500 mg capsule 500 mg PO UD PRN (if needed) calcium citrate 250 mg calcium-vitamin D3 5 mcg (200 unit) tablet 1 tab PO QPM tramadol 50 mg tablet 50 mg PO UD PRN (if needed) atorvastatin 20 mg tablet 20 mg PO QPM montelukast 10 mg tablet (Singulair) 10 mg PO QPM buspirone 10 mg tablet 10 mg PO TID gabapentin 600 mg tablet 1,200 mg PO TID naratriptan 2.5 mg tablet 2.5 mg PO .COMPLEX PRN (if needed) propranolol 160 mg capsule,24 hr,extended release 160 mg PO HS baclofen 20 mg tablet 20 mg PO TID venlafaxine 225 mg tablet,extended release 24 hr 225 mg PO HS Other Notes If you have any questions please call us at [phone] or [phone] or [phone] or [phone]
--- NOTE | 2022-01-09 11:50 | Anesthesiology Consultation ---
Date of Service January 09, 2022 Assessment & Plan (1) Encounter for pre-operative examination: - COVID screening: Per assessment on 01/09: No known COVID-19 positive contacts or current COVID-19 related symptoms. Travel screen negative. Patient vaccovidio deleon. Surgeon arranging preop COVID testing. Awaiting results. - S/P B/L breast reduction (09/08/19): Grade view 1, MAC#3, ETT 6.5 at [facility] Chart Review Chart Review: Acceptable Risk for Surgery and Patient seen in Pre Admission Testing Teaching & Discussion Pre-Anesthesia Teaching/Discussion Notes: Instructed NPO after midnight before surgery,except medications with 15 cc of water. Medication instructions provided according to the PAT guidelines. History Surgery Operation Date: 01/18/22 07:45 Proposed Procedures p L2-L4 Decompression and Fusion, L4-S1 Hardware Removal, Spinal Cord Monitoring - Daniel Umana, Height/Weight Height: 5 ft 8 in Weight: 102.7 kg Allergies Allergy/AdvReac Type Severity Reaction Status Date / Time Bactrim Allergy Unknown UNKNOWN Verified 09/08/19 12:46 codeine Allergy Unknown RASH AND Verified 01/04/22 13:06 ITCHINESS hydromorphone Allergy Unknown Hives Verified 01/04/22 13:06 sulfamethoxazole Allergy Unknown UNKNOWN Verified 01/04/22 13:06 trimethoprim Allergy Unknown UNKNOWN Verified 01/04/22 13:06 doxycycline AdvReac Unknown Diarrhea Verified 01/04/22 13:06 Medications Home Medications Medication Instructions Recorded Confirmed Last Taken acetaminophen 500 mg capsule 500 mg PO UD PRN cap 04/29/19 01/04/22 09/07/19 23:30 calcium citrate 250 mg 1 tab PO QPM tab 04/29/19 01/04/22 09/07/19 13:00 calcium-vitamin D3 5 mcg (200 unit) tablet etodolac 500 mg tablet 500 mg PO BID tab 04/29/19 01/04/22 10 Days Ago ~08/29/19 fexofenadine 180 mg tablet 180 mg PO QAM tab 04/29/19 01/04/22 09/07/19 20:00 mometasone 50 mcg/actuation nasal 1 sprays INTRANASAL QAM #1 gm 04/29/19 01/04/22 09/07/19 13:00 spray multivitamin 1 tab PO QAM 04/29/19 01/04/22 09/07/19 09:00 omeprazole 20 mg capsule,delayed 20 mg PO QAM cap 04/29/19 01/04/22 09/08/19 05:00 release tramadol 50 mg tablet 50 mg PO UD PRN tab 07/03/19 01/04/22 09/07/19 22:00 atorvastatin 20 mg tablet 20 mg PO QPM 08/29/19 01/04/22 09/07/19 19:00 levothyroxine 50 mcg capsule 50 mcg PO QAM 08/29/19 01/04/22 09/08/19 05:00 montelukast 10 mg tablet 10 mg PO QPM 10/14/19 01/04/22 Unknown (Singulair) buspirone 10 mg tablet 10 mg PO TID 04/18/21 01/04/22 Unknown fremanezumab-vfrm 225 mg/1.5 mL 225 mg SUBCUT MONTHLY 30 Days #1.5 08/02/21 01/04/22 Unknown subcutaneous syringe ml gabapentin 600 mg tablet 1,200 mg PO TID 90 Days #540 tab 09/20/21 01/04/22 Unknown naratriptan 2.5 mg tablet 2.5 mg PO .COMPLEX PRN #9 tab 11/21/21 01/04/22 Unknown propranolol 160 mg capsule,24 160 mg PO HS 90 Days #90 cap 11/21/21 01/04/22 Unknown hr,extended release baclofen 20 mg tablet 20 mg PO TID 90 Days #270 tab 01/02/22 01/04/22 Unknown venlafaxine 225 mg tablet,extended 225 mg PO HS 01/04/22 01/04/22 Unknown release 24 hr Past Medical History Medical History Allergy-induced asthma Stable Arthritis NECK AND BACK Carpal tunnel syndrome, bilateral Chronic neck pain Degenerative disc disease NECK AND BACK Roseanne-Danlos syndrome, benign hypermobile form Fibromyalgia High cholesterol Lumbar radiculopathy Migraine without aura, not intractable, without status migrainosus Polyneuropathy Restless leg NO MEDS/MONITORS Thyroid nodule Exercise / Class Metabolic Activity II 4-5 Yardwork/Stairs/Walk up hill (one FS (no CP, no SOB)) Past Family History Family History Grandmother Family history of breast cancer Other Family history of colon cancer Past Surgical History Surgical History History of appendectomy History of back surgery X2 LUMBAR FUSION AND REVISION History of carpal tunnel surgery R History of endoscopy History of partial hysterectomy Nausea and vomiting after administration of anesthetic agent NAUSEA Status post breast reduction (09/08/19) B/L breast reduction (09/08/19): Grade view 1, MAC#3, ETT 6.5 at [facility] Status post insertion of spinal cord stimulator INSERTION AND REVISION : CURRENT LOCATION - LEFT BUTTOCK AREA > Pt states she will bring SCS remote DOS (OR aware) Past Anesthesia History No Hx of Anesthesia Complications (except post-op nausea*) and No Family Hx of Anesthesia Complications (except grandmother with post-op nausea) History of PONV No Hx of Motion Sickness and History of PONV (nausea*) Social History Smoking Status: Former smoker Do You Dip or Chew Tobacco: No Smoking End Date: Quit 10+ years ago Hx Alcohol Use: No Hx Substance Use: No substance use type: does not use Review of Systems Patient denies chest pain, shortness of breath, dyspnea on exertion, fever, chills, cough, wheezing, palpitations. Physical Exam Vital Signs VITALS BP 117/80 P 77 TEMP 98.8 SP02 96%RA RESP 16 PHYSICAL Full cervical extension range of motion. Full TMJ range of motion. TMD 3 finger breaths Mallampati Score 3 Dentition: missing molars Lungs: clear throughout to auscultation Cardiac: regular rate and rhythm, no murmurs noted Spine: normal Carotid arteries: negative bruit Extremities: no edema Lab Results Anesthesia Preop Results Results Anesthesia Widget: WBC 7.12 K/uL (4.8-10.8) 01/09/22 Hgb 13.2 g/dL (12.0-16.0) 01/09/22 Hct 40.5 % (37-47) 01/09/22 Plt 414 K/uL (130-400) H 01/09/22 Na 139 mmol/L (136-145) 01/09/22 K 4.3 mmol/L (3.5-5.1) 01/09/22 Cl 104 mmol/L (98-107) 01/09/22 CO2 29 mmol/L (21-32) 01/09/22 BUN 12 mg/dl (6-23) 01/09/22 Creat 0.94 mg/dl (0.6-1.2) 01/09/22 Glucose Level 78 mg/dl (70-99(Fasting)) 01/09/22 PT 10.5 Seconds (9.0-12.0) 01/09/22 PTT 27.6 Seconds (21.0-31.0) 01/09/22 INR 1.0 (0.9-1.1) 01/09/22 Urine Color Yellow 01/09/22 Urine Appearance Clear (Clear) 01/09/22 Urine pH 7.5 (4.5-7.5) 01/09/22 Urine Specific [place] 1.014 (1.000-1.030) 01/09/22 Urine Protein Negative (Negative) 01/09/22 Urine Glucose (UA) Negative (Negative) 01/09/22 Urine Ketones Negative (Negative) 01/09/22 Urine Blood Negative (Negative) 01/09/22 Urine Nitrite Negative (Negative) 01/09/22 Urine Bilirubin Negative (Negative) 01/09/22 Urine Urobilinogen Negative (Negative) 01/09/22 Urine Leukocyte Esterase Negative (Negative) 01/09/22 Blood Type AB Positive 01/09/22 Antibody Screen NEGATIVE 01/09/22 Testing Electrocardiogram Date: 01/09/22 Findings: + NSR @ (72) Chest X-Ray Date: 01/09/22 FINDINGS: The cardiac silhouette is upper limits of normal in size. There is no pneumothorax, pleural effusion, airspace consolidation or overt pulmonary edema. The bones appear grossly intact. An intrathecal catheter is noted with distal tip overlying the midthoracic spine. IMPRESSION: No acute process.
[~2022-01-18 10:51] MED LIST changes: +ACETAMINOPHEN 500 MG TAB PO SCH; +CeleBREX 200 MG CAP PO SCH; +GABAPENTIN 900 MG DOSE PO SCH
[2022-01-18] MEDS ORDERED: LIDOCAINE 2% 2 ML VIAL/AMP(20MG/ML) INFIL ONE (12:09)
[2022-01-18] MEDS ORDERED: PROPOFOL IV EMULSION 10 MG/ML 20 ML VIAL IV ONE (12:09)
[2022-01-18] MEDS ORDERED: MIDAZOLAM HCL 1 MG/ML 2ML VIAL ONE (12:09)
[2022-01-18] MEDS ORDERED: ROCURONIUM BROMIDE 10 MG/ML 5 ML VIAL IV ONE (12:09)
[2022-01-18] MEDS ORDERED: fentaNYL citrate 100 MCG/2 ML VIAL ONE ×2 (12:10→13:52)
--- NOTE | 2022-01-18 12:35 | History & Physical Bridge Note ---
Date of Service January 18, 2022 History & Physical Bridge Note I have examined the patient, reviewed the History & Physical and in the interval since the performance of the History & Physical I have noted the following changes of clinical significance: no changes noted
--- NOTE | 2022-01-18 12:36 | History & Physical Report ---
Date of Service January 18, 2022 Assessment & Plan (1) Neurogenic claudication due to lumbar spinal stenosis: Plan: L2-L4 decompression fusion, L4-S1 hardware removal History of Present Illness Chief Complaint: Back and leg pain Primary Care Provider: Raul Potter PA-C This is a 41-year-old female who presents with chronic persistent back and leg pain. Failing course of nonoperative care is here for surgical invention. Allergies Allergy/AdvReac Type Severity Reaction Status Date / Time codeine Allergy Intermediate RASH AND Verified 01/18/22 11:43 ITCHINESS hydromorphone Allergy Intermediate Hives Verified 01/18/22 11:43 sulfamethoxazole Allergy Intermediate lip Verified 01/18/22 11:43 swelling, hives trimethoprim Allergy Intermediate lip Verified 01/18/22 11:43 swelling,hives Bactrim Allergy Unknown UNKNOWN Verified 09/08/19 12:46 doxycycline AdvReac Intermediate Diarrhea Verified 01/18/22 11:43 Home Medications Medication Instructions Recorded Confirmed Type acetaminophen 500 mg capsule 500 mg PO UD PRN cap 04/29/19 01/18/22 History calcium citrate 250 mg 1 tab PO QPM tab 04/29/19 01/18/22 History calcium-vitamin D3 5 mcg (200 unit) tablet etodolac 500 mg tablet 500 mg PO BID tab 04/29/19 01/18/22 History fexofenadine 180 mg tablet 180 mg PO QAM tab 04/29/19 01/18/22 History (Lise Allergy) mometasone 50 mcg/actuation nasal 1 sprays INTRANASAL QAM #1 gm 04/29/19 01/18/22 History spray multivitamin 1 tab PO QAM 04/29/19 01/18/22 History omeprazole 20 mg capsule,delayed 20 mg PO QAM cap 04/29/19 01/18/22 History release tramadol 50 mg tablet 50 mg PO UD PRN tab 07/03/19 01/18/22 History atorvastatin 20 mg tablet 20 mg PO QPM 08/29/19 01/18/22 History levothyroxine 50 mcg capsule 50 mcg PO QAM 08/29/19 01/18/22 History montelukast 10 mg tablet 10 mg PO QPM 10/14/19 01/18/22 History (Singulair) buspirone 10 mg tablet 10 mg PO TID 04/18/21 01/18/22 History fremanezumab-vfrm 225 mg/1.5 mL 225 mg SUBCUT MONTHLY 30 Days #1.5 08/02/21 01/18/22 Rx subcutaneous syringe ml gabapentin 600 mg tablet 1,200 mg PO TID 90 Days #540 tab 09/20/21 01/18/22 Rx propranolol 160 mg capsule,24 160 mg PO HS 90 Days #90 cap 11/21/21 01/18/22 Rx hr,extended release baclofen 20 mg tablet 20 mg PO TID 90 Days #270 tab 01/02/22 01/18/22 Rx venlafaxine 225 mg tablet,extended 225 mg PO HS 01/04/22 01/18/22 History release 24 hr naratriptan 2.5 mg tablet (Amerge) 2.5 mg PO .COMPLEX PRN 01/18/22 01/18/22 History Past Med/Surg History Medical History Allergy-induced asthma Stable Arthritis NECK AND BACK Carpal tunnel syndrome, bilateral Chronic neck pain Degenerative disc disease NECK AND BACK Roseanne-Danlos syndrome, benign hypermobile form Fibromyalgia High cholesterol Lumbar radiculopathy Migraine without aura, not intractable, without status migrainosus Polyneuropathy Restless leg NO MEDS/MONITORS Thyroid nodule Surgical History History of appendectomy History of back surgery X2 LUMBAR FUSION AND REVISION History of carpal tunnel surgery R History of endoscopy History of partial hysterectomy Nausea and vomiting after administration of anesthetic agent NAUSEA Status post breast reduction (09/08/19) B/L breast reduction (09/08/19): Grade view 1, MAC#3, ETT 6.5 at [facility] Status post insertion of spinal cord stimulator INSERTION AND REVISION : CURRENT LOCATION - LEFT BUTTOCK AREA > Pt states she will bring SCS remote DOS (OR aware) Family History Grandmother Family history of breast cancer Other Family history of colon cancer Social History Smoking Status: Former smoker Smoking End Date: Quit 10+ years ago; Second Hand Exposure: No; Do You Dip or Chew Tobacco: No; Hx Alcohol Use: No Hx Substance Use: No Preferred Language: Bur[place]ian Communication Ability: Effective Visual Impairment: No Limitations Hearing Ability: Normal Concession Manager Required: No Beliefs That Will Affect Care: None marital status: Current Living Situation: Family current occupational status: disabled Feels Safe at Home: Yes Safety Concerns: Feels Safe At This Time Assistive Devices: Cane and Glasses Physical Exam Physical Exam: Patient is alert and oriented Heart regular in rhythm Lungs clear Results & Data ([facility]) Vital Signs (Past 12 Hours) Vital Signs Temp Pulse Resp BP Pulse Ox 01/18/22 12:12 37.1 C 73 20 120/84 99
[2022-01-18] MEDS ORDERED: KETAMINE 50 MG/5 ML SYRINGE ONE (13:08)
[2022-01-18] MEDS ORDERED: BUPIVACAINE/EPINEPHRINE 0.25% 1:200,000 30 ML VIAL ONE (13:20)
[2022-01-18] MEDS ORDERED: ceFAZolin 330 MG/ML 1 GM VIAL ONE (13:20)
[2022-01-18] MEDS ORDERED: ePHEDrine sulfate 50 MG/ML AMP IV PRN (13:27)
[2022-01-18] MEDS ORDERED: FLUMAZENIL 0.1 MG/1 ML 10 ML VIAL IV PRN (13:27)
[2022-01-18] MEDS ORDERED: NALOXONE HCL 0.4 MG/1 ML VIAL/CARP IV PRN ×2 (13:27→17:43)
[2022-01-18] MEDS ORDERED: PROMETHAZINE HCL 12.5 MG in SODIUM CHLORIDE 0.9% 50 ML IV PRN ×2 (13:27→17:43)
[2022-01-18] MEDS ORDERED: LABETALOL HCL IV 5 MG/ML 20ML IV PRN (13:27)
[2022-01-18] MEDS ORDERED: ATROPINE SULFATE 0.1 MG/ML 10ML SYR IV PRN (13:27)
[2022-01-18] MEDS ORDERED: ONDANSETRON INJ 2 MG/ML 2 ML VIAL IV PRN ×2 (13:27→17:43)
[2022-01-18] MEDS ORDERED: ePHEDrine sulfate 50 MG/ML AMP ONE (13:43)
[2022-01-18] MEDS ORDERED: DEXAMETHASONE SOD INJ 4 MG/ML VIAL ONE (13:52)
[2022-01-18] MEDS ORDERED: ONDANSETRON INJ 2 MG/ML 2 ML VIAL ONE ×2 (13:52→15:21)
[2022-01-18] MEDS ORDERED: NEOSTIGMINE METHYLSULFATE 1 MG/ML 10ML VIAL ONE (13:53)
[2022-01-18] MEDS ORDERED: GLYCOPYRROLATE 0.2 MG/ML VIAL ONE (13:53)
[2022-01-18] MEDS ORDERED: FLOSEAL HEMOSTATIC MATRIX 10ML TOP ONE (14:09)
--- NOTE | 2022-01-18 15:36 | Operative Report ---
Post Operative Report Pre & Post Diagnosis Operation Date: 01/18/22 12:25 Pre-Op Diagnosis: Spinal Stenosis, Lumbar Region with Neurogenic Cla Post-Op Diagnosis: Spinal Stenosis, Lumbar Region with Neurogenic Cla I identified the patient and participated in the time-out.: Yes Procedure Operation Date: 01/18/22 12:25 Actual Procedures #1 removal of posterior instrumentation L4-L5 L5-S1. #2 exploration of fusion L4-L5 L5-S1. #3 lumbar decompression with bilateral medial facetectomies and foraminotomies L2-L3 L3-L4. #4 posterior spinal fusion L2-L3 L3-L4. #5 placement of posterior instrumentation L2-S1. #6 interbody fusion L3-L4. #7 placement of Spira 12 x 26 mm cage at L3-L4. #8 placement locally harvested morselized autograft in the posterior gutters. #9 placement of I factor combined with V toss in the interbody space and posterior lateral gutters. Surgeon Daniel Umana, DO Machine Molder Radha Villeda Estimated Blood Loss 250 Findings See Below The patient is 5 foot 8 inches tall weighing over 101 kg with a BMI in excess of 33. Patient's body habitus did contribute to significant technical difficulty required deepest retractors longus instruments in order to perform her procedure. This at least 50% increased operative time. Specimens None Indications This is a 41-year-old female who presents with above-mentioned diagnosis after failed course of nonoperative care she is here for surgical invention. Description of Procedure Patient is met with identified informed consent obtained. Patient was then taken to the operative suite underwent a patient placed in a prone position the Peggs table top Carlos frame. All bony prominences well-padded eyes inspected to ensure no external pressure placed upon them. This point lumbar spine was prepped and draped in normal sterile fashion. Sharp dissection with the assistance of Bovie cautery was performed down to and exposing the lamina and transverse processes of L2-L3 and instrumentation at L4-5 and sacral ala bilaterally. Then proceeded move the hardware bilaterally. The distal screws were well fixed and SCHWARTZ-coated with I was unable to successfully remove the S1 screws and L5 screws on the left. Subsequently elected to keep them in place. I did then performed complete laminectomy of L3 and L2 including bilateral medial facetectomies and foraminotomies addressing severe spinal stenosis. Pedicle screws then placed in L2 and L3-L4 bilaterally. Proper size rods were then placed I did incorporate the previous instrumentation bilaterally for solid construct. By way of a transforaminal approach on the right a complete discectomy L3-L4 was performed endplates curetted to subcortically bone and a 12 x 26 mm spiral cage with I factor tapped in position. The rods and locked in final position bilaterally. The transverse processes of L to L3 and L4 burred to subcortically bone. I factor combined with V toss and locally harvested morselized autograft was placed in the posterior lateral gutters. 15 round ASPEN drain inserted. The incision was then closed with 1 Vicryl to fascia 2-0 Vicryl subcutaneously and 4 Monocryl for final skin closure. Steri-Strip sterile dressings placed. Patient waken taken PACU stable condition. Please note spinal cord monitoring was utilized at the procedure no changes noted. Lastly Radha Villeda was present out the entire surgery and while the patient positioning complex portions of the surgery and final skin closure. I attest to the content of the Intraoperative Record and any orders documented therein. Any exceptions are noted below.
--- NOTE | 2022-01-18 15:51 | Fluoroscopy Report ---
FL lumbar spine 2-3V CLINICAL HISTORY: L4-S1 REMOVE HARDWARE L2-4 DFI COMPARISON STUDY: Lumbar spine radiographs July 27, 2015. FLUOROSCOPY TIME: 22 seconds. FLUOROSCOPIC IMAGES: 4 FINDINGS: Previous L5-S1 discectomy with interbody spacer is present. Interval hardware removal is no adrienne. Previous S1 screw fragments are noted. Subsequent L3-L4 discectomy with interbody spacer placeme nt is noted. Posterior decompression is noted. Pedicle screw fusion from L2 through S1 is now noted. One screw is present at the L5 level. Otherwise, bilateral pedicle screws are present. IMPRESSION: Fluoroscopy provided during hardware removal and L3-L4 discectomy and L2-S1 posterior de compression and fusion. ACT 112: Negative or not required by law. Electronically signed by: Johnnie Ellis M.D. 01/18/2022 3:50 PM
[2022-01-18] MEDS: fentaNYL citrate 100 MCG/2 ML VIAL IV PRN ×8 (16:06→17:00)
--- NOTE | 2022-01-18 16:13 | Anesthesiology Progress Note ---
Date of Service January 18, 2022 Anesthesia Post Procedure Vital Signs Vital Signs: Temp Pulse Pulse Resp BP Pulse Ox 01/18/22 15:53 36 C L 64 20 120/76 95 01/18/22 12:12 37.1 C 73 20 120/84 99 Pain Intensity Bilateral Leg: Pain Intensity: 7 Lower Back: Pain Intensity: 8 Transfer of Care Handoff Completed per policy Notes Mental Status: alert / awake / arousable Patient Amnestic to Procedure: Yes Nausea / Vomiting: adequately controlled Pain: adequately controlled Airway Patency, RR, SpO2: stable & adequate BP & HR: stable & adequate Hydration State: stable & adequate Anesthetic Complications: no major complications apparent
--- NOTE | 2022-01-18 17:20 | Anesthesiology Progress Note ---
Date of Service January 18, 2022 Anesthesia Post Procedure Vital Signs Vital Signs: Temp Pulse Pulse Resp BP Pulse Ox 01/18/22 17:10 36.9 C 83 14 132/66 95 01/18/22 17:00 78 12 119/74 97 01/18/22 16:50 71 15 101/72 96 01/18/22 16:40 70 17 125/68 94 01/18/22 16:30 80 13 114/76 100 01/18/22 16:20 81 12 122/74 92 01/18/22 16:10 67 15 135/82 100 01/18/22 16:00 65 12 108/70 100 01/18/22 15:53 36 C L 64 20 120/76 95 01/18/22 12:12 37.1 C 73 20 120/84 99 Pain Intensity Bilateral Leg: Pain Intensity: 7 Lower Back: Pain Intensity: 4 Transfer of Care Handoff Completed per policy Notes Mental Status: alert / awake / arousable and participated in evaluation Patient Amnestic to Procedure: Yes Nausea / Vomiting: adequately controlled Pain: adequately controlled Airway Patency, RR, SpO2: stable & adequate BP & HR: stable & adequate Hydration State: stable & adequate Anesthetic Complications: no major complications apparent
[2022-01-18] MEDS ORDERED: ACETAMINOPHEN 500 MG TAB PO PRN (17:43)
[2022-01-18] MEDS ORDERED: DO NOT ADMINISTER PNEUMOCOCCAL VACCINE PRN (17:43)
[2022-01-18] MEDS ORDERED: ALUMINUM/MAGNESIUM SUSP 30 ML UDC PO PRN (17:43)
[2022-01-18] MEDS ORDERED: FAMOTIDINE 20 MG TAB PO PRN (17:43)
[2022-01-18] MEDS ORDERED: SOD PHOSPHATE/SOD BIPHOSPHATE ENEMA 132 ML BTL PR PRN (17:43)
[2022-01-18] MEDS ORDERED: ONDANSETRON 4 MG OD TAB PO PRN (17:43)
[2022-01-18] MEDS ORDERED: ACETAMINOPHEN 1,000 MG/100 ML VIAL IV PRN (17:43)
[2022-01-18] MEDS ORDERED: diphenhydrAMINE Capsule 25 MG CAP PO PRN (17:43)
[2022-01-18] MEDS ORDERED: MoRPHine SULFATE 2 MG/ML CARP IV PRN (17:43)
[2022-01-18] MEDS ORDERED: LORazepam 2 MG/1 ML VIAL IV PRN (17:43)
[2022-01-18] MEDS ORDERED: DO NOT ADMINISTER FLU VACCINE PRN (17:43)
[2022-01-18] MEDS ORDERED: MAGNESIUM HYDROXIDE SUSP 30 ML UDC PO PRN (17:43)
[2022-01-18] MEDS ORDERED: METOCLOPRAMIDE HCL INJ 5 MG/ML 2 ML VIAL IV PRN (17:43)
[2022-01-18] MEDS ORDERED: bisacodyL 10 MG SUPP PR PRN (17:43)
[2022-01-18] MEDS ORDERED: hydrOXYzine HCl 25 MG TAB PO PRN (17:43)
--- NOTE | 2022-01-18 18:13 | Hospitalist Consultation ---
Date of Consultation January 18, 2022 Assessment & Plan (1) Neurogenic claudication due to lumbar spinal stenosis: POD#0 L2-L4 decompression fusion, L4-S1 hardware removal by Dr. Umana activity and wound care orders as per ortho pain control with bowel regimen PT/OT monitor H/H for acute blood loss anemia and transfuse blood products PRN EBL 250 cc (2) Hypothyroidism: Continue levothyroxine (3) Mood disorder: (4) Fibromyalgia: Stable, continue home meds (5) Chronic migraine with aura: Continue propanolol prophylaxis (6) Renal calculi: History of, continue tamsulosin (7) HLD (hyperlipidemia): Continue statin (8) DVT prophylaxis: TEDs/SCDs as per spine Ortho Thank you for this consultation. We will follow the patient with you during their hospital stay. You can reach a member of the Orthopaedic Hospitalist Team 16/04 via the Orthopaedic Hospitalist role in [place] Text. Supervising Physician Co-Signing Physician Notes Patient is a 41-year-old female with multiple comorbidities was consulted for postop medical management. Patient underwent lumbar surgery by Dr. Umana. Patient is doing well postoperatively. She denies any significant pain at surgical site. Also denies any chest pain, shortness of breath, dizziness, nausea, abdominal pain. Please review HPI for complete details. Physical Exam: Vitals signs as noted above General Appearance:Moderately built and nourished, no apparent distress Head: normocephalic, Atraumatic Eyes: normal inspection, EOMI Neck: supple, Trachea midline Respiratory/Chest: Normal breath sounds, CTA, No accessory muscle use Cardiovascular: S1, S2, No murmur Abdomen/GI:Soft, Non tender, Bowel sounds present Back:Surgical Site in dressing Extremities/Musculoskeletal:normal inspection, no edema Neurologic/Psych:AAOX3, grossly no focal neurological deficits Skin: normal color, warm Neurogenic claudication due to lumbar spinal stenosis S/P Surgery Monitor for postop anemia. Bowel regimen to prevent constipation. Wound care, pain control, DVT prophylaxis as per primary team. Incentive spirometry. I personally reviewed the record. Patient is interviewed and examined at bedside. Patient's care is coordinated with Melody Kelly CLINICAL MARKETING MANAGER. Please refer to the documentation above for details of patient's presentation and for discussion of other issues. History of Present Illness Reason for Consultation: Postop medical management Requesting Physician: Dr. Umana Attending Physician: Dr. Feldman History of Present Illness 41-year-old female with PMH hyperlipidemia, asthma, renal calculi, fibromyalgia, chronic migraines, mood disorder, and other problems listed below who is s/p L2- L4 decompression fusion, L4-S1 hardware removal today by Dr. Umana. Postope ratively, the patient is doing well. She is experiencing postoperative pain at the incision site as well as radiating into both of her legs. Patient denies numbness and tingling. No chest pain or shortness of breath. Denies lightheadedness and dizziness. No abdominal pain or nausea. Hines catheter is in place draining clear yellow urine. Allergies Allergy/AdvReac Type Severity Reaction Status Date / Time codeine Allergy Intermediate RASH AND Verified 01/18/22 11:43 ITCHINESS hydromorphone Allergy Intermediate Hives Verified 01/18/22 11:43 sulfamethoxazole Allergy Intermediate lip Verified 01/18/22 11:43 swelling, hives trimethoprim Allergy Intermediate lip Verified 01/18/22 11:43 swelling,hives Bactrim Allergy Unknown UNKNOWN Verified 09/08/19 12:46 doxycycline AdvReac Intermediate Diarrhea Verified 01/18/22 11:43 Home Medications Medication Instructions Recorded Confirmed Type acetaminophen 500 mg capsule 500 mg PO UD PRN cap 04/29/19 01/18/22 History calcium citrate 250 mg 1 tab PO QPM tab 04/29/19 01/18/22 History calcium-vitamin D3 5 mcg (200 unit) tablet etodolac 500 mg tablet 500 mg PO BID tab 04/29/19 01/18/22 History fexofenadine 180 mg tablet 180 mg PO QAM tab 04/29/19 01/18/22 History (Lise Allergy) mometasone 50 mcg/actuation nasal 1 sprays INTRANASAL QAM #1 gm 04/29/19 01/18/22 History spray multivitamin 1 tab PO QAM 04/29/19 01/18/22 History omeprazole 20 mg capsule,delayed 20 mg PO QAM cap 04/29/19 01/18/22 History release tramadol 50 mg tablet 50 mg PO UD PRN tab 07/03/19 01/18/22 History atorvastatin 20 mg tablet 20 mg PO QPM 08/29/19 01/18/22 History levothyroxine 50 mcg capsule 50 mcg PO QAM 08/29/19 01/18/22 History montelukast 10 mg tablet 10 mg PO QPM 10/14/19 01/18/22 History (Singulair) buspirone 10 mg tablet 10 mg PO TID 04/18/21 01/18/22 History fremanezumab-vfrm 225 mg/1.5 mL 225 mg SUBCUT MONTHLY 30 Days #1.5 08/02/21 01/18/22 Rx subcutaneous syringe ml gabapentin 600 mg tablet 1,200 mg PO TID 90 Days #540 tab 09/20/21 01/18/22 Rx propranolol 160 mg capsule,24 160 mg PO HS 90 Days #90 cap 11/21/21 01/18/22 Rx hr,extended release baclofen 20 mg tablet 20 mg PO TID 90 Days #270 tab 01/02/22 01/18/22 Rx venlafaxine 225 mg tablet,extended 225 mg PO HS 01/04/22 01/18/22 History release 24 hr naratriptan 2.5 mg tablet (Amerge) 2.5 mg PO .COMPLEX PRN 01/18/22 01/18/22 History tamsulosin 0.4 mg capsule 0.4 mg PO DAILY 01/18/22 01/18/22 History Patient History Medical History Allergy-induced asthma Stable Arthritis NECK AND BACK Carpal tunnel syndrome, bilateral Chronic neck pain Degenerative disc disease NECK AND BACK Roseanne-Danlos syndrome, benign hypermobile form Fibromyalgia High cholesterol Hypothyroidism Lumbar radiculopathy Migraine without aura, not intractable, without status migrainosus Mood disorder Polyneuropathy Renal calculi Restless leg NO MEDS/MONITORS Thyroid nodule Surgical History History of appendectomy History of back surgery X2 LUMBAR FUSION AND REVISION History of carpal tunnel surgery R History of endoscopy History of partial hysterectomy Nausea and vomiting after administration of anesthetic agent NAUSEA Status post breast reduction (09/08/19) B/L breast reduction (09/08/19): Grade view 1, MAC#3, ETT 6.5 at [facility] Status post insertion of spinal cord stimulator INSERTION AND REVISION : CURRENT LOCATION - LEFT BUTTOCK AREA > Pt states she will bring SCS remote DOS (OR aware) Family History Grandmother Family history of breast cancer Other Family history of colon cancer Social History Smoking Status: Former smoker Smoking End Date: Quit 10+ years ago; Second Hand Exposure: No; Do You Dip or Chew Tobacco: No; Hx Alcohol Use: No Hx Substance Use: No Preferred Language: Mozambican Communication Ability: Effective Visual Impairment: No Limitations Hearing Ability: Normal Roper Operator Required: No Beliefs That Will Affect Care: None marital status: Current Living Situation: Family current occupational status: disabled Feels Safe at Home: Yes Safety Concerns: Feels Safe At This Time Assistive Devices: Cane and Glasses Review of Systems Review of Systems: ROS per HPI, all other systems reviewed and negative Physical Exam Physical Exam: please refer to Dr. Feldman'a addendum for physical exam Results & Data Results & Data ([facility]) Vital Signs (Past 12 Hours) Vital Signs Temp Pulse Pulse Resp BP Pulse Ox 01/18/22 18:00 36.6 C 75 16 112/67 98 01/18/22 17:30 36.8 C 77 16 120/71 99 01/18/22 17:20 76 14 115/67 96 01/18/22 17:10 36.9 C 83 14 132/66 95 01/18/22 17:00 78 12 119/74 97 01/18/22 16:50 71 15 101/72 96 01/18/22 16:40 70 17 125/68 94 01/18/22 16:30 80 13 114/76 100 01/18/22 16:20 81 12 122/74 92 01/18/22 16:10 67 15 135/82 100 01/18/22 16:00 65 12 108/70 100 01/18/22 15:53 36 C L 64 20 120/76 95 01/18/22 12:12 37.1 C 73 20 120/84 99
[2022-01-18] MEDS: LACTATED RINGER'S 1,000 ML IV SCH (18:35)
[2022-01-18] MEDS: oxyCODONE HCL IR 5 MG TAB (IMMEDIATE RELEASE) PO PRN (18:40)
[2022-01-18] MEDS: MoRPHine SULFATE 4 MG/ML 1 ML CARP\\VIAL IV PRN ×2 (19:59→23:51)
[2022-01-18] MEDS: MONTELUKAST SODIUM 10 MG TABLET PO SCH (20:06)
[2022-01-18] MEDS: ATORVASTATIN 20 MG TAB PO SCH (20:07)
[2022-01-18] MEDS: busPIRone 5 MG TAB PO SCH (20:07)
[2022-01-18] MEDS: CALCIUM 600MG + VIT D 400 IU TAB PO SCH (20:08)
[2022-01-18] MEDS: GABAPENTIN 600 MG TAB PO SCH (20:08)
[2022-01-18] MEDS: DOCUSATE SODIUM/SENNA 50/8.6MG TAB PO SCH (20:09)
[2022-01-18] MEDS: PROPRANOLOL HCL LA 80 MG CAPCR PO SCH (20:09)
[2022-01-18] MEDS: VENLAFAXINE HCL XR 75 MG CAPXR PO SCH (20:10)
[2022-01-18] MEDS: ceFAZolin 2000MG 2,000 MG/15 ML SYR IV SCH (20:11)
[2022-01-19] MEDS: LACTATED RINGER'S 1,000 ML IV SCH (01:13)
[2022-01-19] MEDS: MoRPHine SULFATE 4 MG/ML 1 ML CARP\\VIAL IV PRN ×4 (03:20→20:11)
[2022-01-19] MEDS: POLYETHYLENE (MIRALAX) 17 GM PACK PO SCH ×4 (05:47→21:14)
[2022-01-19] MEDS: LEVOTHYROXINE SODIUM 50 MCG TABLET PO SCH (05:48)
[2022-01-19] MEDS: ceFAZolin 2000MG 2,000 MG/15 ML SYR IV SCH (05:49)
[2022-01-19] MEDS: oxyCODONE HCL IR 5 MG TAB (IMMEDIATE RELEASE) PO PRN ×3 (06:35→21:13)
[2022-01-19 07:00] LABS: Basophils # (auto) 0.01 K/uL (0-0.2); Basophils % (auto) 0.1 %; Hematocrit (blood only) 34.6 % (37-47); Hemoglobin 11.4 g/dL (12.0-16.0); Immature Granulocytes # (auto) 0.03 K/uL (0.00-0.02); Immature Granulocytes % (auto) 0.2 %; Lymphocytes # (auto) 1.47 K/uL (1.2-3.4); Lymphocytes % (auto) 11.9 %; Mean Corpuscular Hemoglobin 30.8 pg (25-34); Mean Corpuscular Hgb Conc 32.9 g/dL (32-36); Mean Corpuscular Volume 93.5 fL (80-100); Mean Platelet Volume 8.8 fL (7.4-10.4); Monocytes # (auto) 0.82 K/uL (0.11-0.59); Monocytes % (auto) 6.6 %; Neutrophils # (auto) 10.07 K/uL (1.4-6.5); Neutrophils % (auto) 81.2 %; Platelet Count 354 K/uL (130-400); RDW Coefficient of Variation 12.6 % (11.5-14.5); RDW Standard Deviation 42.8 fL (36.4-46.3)
[2022-01-19 07:25] LABS: BUN Creatinine Ratio 10.8 (10-20); Creatinine Clr Calc Pharmacy 112.1 ml/min; Est GFR (African American) 102.2 ml/min; Est GFR (Non-African American) 88.2 ml/min; Potassium 3.8 mmol/L (3.5-5.1)
--- NOTE | 2022-01-19 08:37 | Orthopedic Progress Note ---
Date of Service January 19, 2022 Assessment & Plan (1) Neurogenic claudication due to lumbar spinal stenosis: Plan: At this time initiate physical therapy monitor ASPEN operatively discharge home in the next few days. Admission and Anticipated Discharge Date Admission Date: January 18, 2022 Subjective Back pain is controlled leg pain improved Physical Exam Physical Exam: Patient is in a chair at the bedside. Is good strength testing. Appears comfortable. Results & Data ([facility]) Vital Signs (Past 12 Hours) Vital Signs Temp Pulse Resp BP Pulse Ox 01/19/22 07:48 36.8 C 77 18 119/76 100 01/19/22 01:53 37.2 C 71 16 98/60 L 94 01/18/22 20:46 37.1 C 85 16 100/63 91
[2022-01-19] MEDS: dexAMETHasone 6 MG in SYRINGE 0 ML IV SCH (09:19)
[2022-01-19] MEDS: FLUTICASONE PROPIONATE NA SPR 16 GM BTL SCH (09:20)
[2022-01-19] MEDS: FEXOFENADINE HCL 180 MG TAB PO SCH (09:20)
[2022-01-19] MEDS: busPIRone 5 MG TAB PO SCH ×3 (09:20→20:16)
[2022-01-19] MEDS: GABAPENTIN 600 MG TAB PO SCH ×3 (09:21→20:17)
[2022-01-19] MEDS: PANTOprazole 40 MG TAB PO SCH (09:21)
[2022-01-19] MEDS: MULTIVITAMIN TAB PO SCH (09:21)
[2022-01-19] MEDS: TAMSULOSIN HCL 0.4 MG CAP PO SCH (09:21)
--- NOTE | 2022-01-19 13:10 | Hospitalist Progress Note ---
Date of Service January 19, 2022 Assessment & Plan (1) Neurogenic claudication due to lumbar spinal stenosis: Plan: POD#1 L2-L4 decompression fusion, L4-S1 hardware removal by Dr. Umana activity and wound care orders as per ortho pain control with bowel regimen PT/OT monitor H/H for acute blood loss anemia and transfuse blood products PRN EBL 250 cc Acute blood loss anemia in setting of postoperative state Preop Hemoglobin 13.2, hemoglobin 11.4 today Monitor ASPEN output Leukocytosis Likely reactive in setting of surgery No Signs or symptoms of infection (2) Hypothyroidism: Plan: Continue levothyroxine (3) Mood disorder: (4) Fibromyalgia: Plan: Stable, continue home meds (5) Chronic migraine with aura: Plan: Continue propanolol prophylaxis (6) Renal calculi: Plan: History of, continue tamsulosin (7) HLD (hyperlipidemia): Plan: Continue statin (8) DVT prophylaxis: Plan: TEDs/SCDs as per spine Ortho Patient was seen and examined in collaboration with, Dr. Morris. Please see a ddendum Thank you for this consultation. We will follow the patient with you during their hospital stay. You can reach a member of the [facility] Hospitalist Team 16/04 via the [facility] Hospitalist role in [place] Text. Admission and Anticipated Discharge Date Admission Date: January 18, 2022 Supervising Physician Co-Signing Physician Notes Pt was seen and examined. Agree with Olga STEVENSON exam, assessment and plan. S/P day #1 L2-L4 decompression fusion, L4-S1 hardware removal by Dr. Umana. No postop complication. Continue incentive spirometry. Continue pain control. continue physical and occupation therapy. Fall precaution. Will monitor H/H and transfuse if hgb drops below 8. MD Alexandra Subjective Patient was seen and examined in room 305-1. Follow-up lumbar surgery by Dr. Umana. She is complaining of right leg pain this morning. Denies fever, chills, sweats, chest pain, shortness of breath, nausea, vomiting, abdominal pain. She is tolerating diet. Review of Systems Review of Systems: All systems reviewed & are unremarkable except as noted in HPI & below Physical Exam Physical Exam: Gen: WD/WN, F, sitting up in bedside chair, NAD, A&O x3 HEENT: Normocephalic, atraumatic, conjunctivae moist, sclerae anicteric, mucous membranes moist. Lung: Clear to Auscultation bilaterally, no wheezes/rales/rhonchi Heart: Regular rate, regular rhythm, no murmurs, rubs, or gallops Abdomen: Soft, NT, ND +BS x 4 Extremities: No edema, lumbar dressing CDI, ASPEN drain with serosanguineous drainage Skin: Warm, no rash, negative turgor. Results & Data Results & Data ([facility]) Vital Signs (Past 12 Hours) Vital Signs Temp Pulse Resp BP Pulse Ox 01/19/22 12:05 36.4 C L 69 16 98/60 L 96 01/19/22 11:00 37.2 C 75 16 99/63 L 92 01/19/22 07:48 36.8 C 77 18 119/76 100 01/19/22 01:53 37.2 C 71 16 98/60 L 94 Laboratory Results Short CBC 01/19/22 Range/Units 05:50 WBC 12.40 H (4.8-10.8) K/uL Hgb 11.4 L (12.0-16.0) g/dL Hct 34.6 L (37-47) % Plt Count 354 (130-400) K/uL BMP 01/19/22 05:50 Sodium 139 Potassium 3.8 Chloride 105 Carbon Dioxide 27 BUN 9 Creatinine 0.83 Glucose 85 Calcium 9.0 Medications Administered Current Inpatient Medications Acetaminophen (Acetaminophen 500 Mg Tab) 1,000 mg PO Q8H PRN PRN Reason: MILD Pain Scale 1,2,3 & Pre PT Stop: 02/17/22 17:42 Al Hydrox/Mg Hydrox/Simethicone (Aluminum/Magnesium Susp 30 Ml Udc) 30 ml PO Q6H PRN PRN Reason: Dyspepsia Stop: 02/17/22 17:42 Atorvastatin Calcium (Atorvastatin 20 Mg Tab) 20 mg PO QPM ROSALEE Stop: 02/17/22 20:59 Last Admin: 01/18/22 20:07 Dose: 20 mg Documented by: Baclofen (Baclofen 20 Mg Tab) 20 mg PO TID PRN PRN Reason: muscle spasm Stop: 02/18/22 13:59 Bisacodyl (Bisacodyl 10 Mg Supp) 10 mg AK DAILY PRN PRN Reason: Constipation Stop: 02/17/22 17:42 Buspirone HCl (Buspirone 5 Mg Tab) 10 mg PO TID [facility] Stop: 02/17/22 20:59 Last Admin: 01/19/22 09:20 Dose: 10 mg Documented by: Diphenhydramine HCl (Diphenhydramine Capsule 25 Mg Cap) 25 mg PO Q6H PRN PRN Reason: Allergic Rhinitis/Insomnia Stop: 02/17/22 17:42 Famotidine (Famotidine 20 Mg Tab) 20 mg PO Q12H PRN PRN Reason: Dyspepsia Stop: 02/17/22 17:42 Fexofenadine HCl (Fexofenadine Hcl 180 Mg Tab) 180 mg PO QAM [facility] Stop: 02/18/22 08:59 Last Admin: 01/19/22 09:20 Dose: 180 mg Documented by: Fluticasone Propionate (Fluticasone Propionate Na Spr 16 Gm Btl) 2 sprays NA [facility] Stop: 02/18/22 08:59 Last Admin: 01/19/22 09:20 Dose: 2 sprays Documented by: Gabapentin (Gabapentin 600 Mg Tab) 1,200 mg PO TID [facility] Stop: 02/17/22 20:59 Last Admin: 01/19/22 09:21 Dose: 1,200 mg Documented by: Hydroxyzine HCl (Hydroxyzine Hcl 25 Mg Tab) 25 mg PO Q8H PRN PRN Reason: Anxiety Stop: 02/17/22 17:42 Promethazine HCl 12.5 mg/ (Sodium Chloride) 50.5 mls @ 202 mls/hr IV Q6H PRN PRN Reason: Nausea &/or Vomiting Stop: 02/17/22 17:42 Acetaminophen (Ofirmev) 1,000 mg in 100 mls @ 400 mls/hr IV Q8H PRN PRN Reason: Pain Rating 1-3 & Pre PT Stop: 01/21/22 17:42 Dexamethasone 6 mg/ Syringe 1.5 mls @ 1 mls/min IV DAILY [facility] Stop: 01/21/22 09:02 Last Admin: 01/19/22 09:19 Dose: 1 mls/min Documented by: Influenza Virus Vaccine Quadrival (Do Not Administer Flu Vaccine) 1 ea N/A PRN PRN PRN Reason: Notification Stop: 02/17/22 17:42 Levothyroxine Sodium (Levothyroxine Sodium 50 Mcg Tablet) 50 mcg PO DAILYBB [facility] Stop: 02/18/22 06:29 Last Admin: 01/19/22 05:48 Dose: 50 mcg Documented by: Lorazepam (Lorazepam 0.5 Mg Tab) 0.5 mg PO Q8H PRN PRN Reason: Sedation/Anxiety Stop: 02/17/22 17:42 Lorazepam (Lorazepam 2 Mg/1 Ml Vial) 0.5 mg IV Q8H PRN PRN Reason: Sedation/Anxiety Stop: 02/17/22 17:42 Magnesium Hydroxide (Magnesium Hydroxide Susp 30 Ml Udc) 30 ml PO Q24H PRN PRN Reason: Constipation Stop: 02/17/22 17:42 Metoclopramide HCl (Metoclopramide Hcl Inj 5 Mg/Ml 2 Ml Vial) 10 mg IV Q6H PRN PRN Reason: Nausea &/or Vomiting Stop: 02/17/22 17:42 Miscellaneous (Naratriptan [Amerge] 2.5 Mg - Order Awaiting Action) 1 ea N/A QS [facility] Stop: 02/18/22 00:00 Last Admin: 01/19/22 07:39 Dose: Not Given Documented by: Montelukast Sodium (Montelukast Sodium 10 Mg Tablet) 10 mg PO QPM [facility] Stop: 02/17/22 20:59 Last Admin: 01/18/22 20:06 Dose: 10 mg Documented by: Morphine Sulfate (Morphine Sulfate 2 Mg/Ml Carp) 2 mg IV Q3H PRN PRN Reason: MODERATE Pain (Scale 4,5,6) & Pre PT Stop: 02/01/22 17:42 Morphine Sulfate (Morphine Sulfate 4 Mg/Ml 1 Ml Carp\Vial) 4 mg IV Q3H PRN PRN Reason: SEVERE Pain (Scale 7,8,9,10) Stop: 02/01/22 17:42 Last Admin: 01/19/22 10:21 Dose: 4 mg Documented by: Multivitamins (Multivitamin Tab) 1 tab PO QAM [facility] Stop: 02/18/22 08:59 Last Admin: 01/19/22 09:21 Dose: 1 tab Documented by: Multivitamins/Minerals (Calcium 600mg + Vit D 400 Iu Tab) 1 tab PO QPM [facility] Stop: 02/17/22 20:59 Last Admin: 01/18/22 20:08 Dose: 1 tab Documented by: Naloxone HCl (Naloxone Hcl 0.4 Mg/1 Ml Vial/Carp) 0.1 mg IV Q5M PRN PRN Reason: Oversedation/Resp depression Stop: 02/17/22 17:42 Ondansetron HCl (Ondansetron Inj 2 Mg/Ml 2 Ml Vial) 4 mg IV Q6H PRN PRN Reason: Nausea &/or Vomiting Stop: 02/17/22 17:42 Last Admin: 01/18/22 23:56 Dose: 4 mg Documented by: Ondansetron HCl (Ondansetron 4 Mg Od Tab) 4 mg PO Q6H PRN PRN Reason: Nausea Stop: 02/17/22 17:42 Oxycodone HCl (Oxycodone Hcl Ir 5 Mg Tab (Immediate Release)) 5 - 10 mg PO Q4H PRN PRN Reason: Pain & Pre PT Stop: 02/01/22 17:42 Last Admin: 01/19/22 06:35 Dose: 10 mg Documented by: Pantoprazole Sodium (Pantoprazole 40 Mg Tab) 40 mg PO QAM [facility] Stop: 02/18/22 08:59 Last Admin: 01/19/22 09:21 Dose: 40 mg Documented by: Pneumococcal Polyvalent Vaccine (Do Not Administer Pneumococcal Vaccine) 1 ea N/A PRN PRN PRN Reason: Notification Stop: 02/17/22 17:42 Polyethylene Glycol (Polyethylene (Miralax) 17 Gm Pack) 17 gm PO Q6 ROSALEE Stop: 02/18/22 05:59 Last Admin: 01/19/22 05:47 Dose: 17 gm Documented by: Propranolol HCl (Propranolol Hcl La 80 Mg Capcr) 160 mg PO HS [facility] Stop: 02/17/22 20:59 Last Admin: 01/18/22 20:09 Dose: 160 mg Documented by: Senna/Docusate Sodium (Docusate Sodium/Senna 50/8.6mg Tab) 2 tab PO HS [facility] Stop: 02/17/22 20:59 Last Admin: 01/18/22 20:09 Dose: 2 tab Documented by: Sodium Biphosphate/Sodium Phosphate (Sod Phosphate/Sod Biphosphate Enema 132 Ml Btl) 132 ml AK ONE PRN PRN Reason: Constipation Stop: 02/17/22 17:42 Tamsulosin HCl (Tamsulosin Hcl 0.4 Mg Cap) 0.4 mg PO DAILY ROSALEE Stop: 02/18/22 08:59 Last Admin: 01/19/22 09:21 Dose: 0.4 mg Documented by: Tramadol HCl (Tramadol Hcl 50 Mg Tablet) 50 - 100 mg PO Q4H PRN PRN Reason: Moderate-Severe pain & Pre PT Stop: 02/17/22 17:42 Venlafaxine HCl (Venlafaxine Hcl Xr 75 Mg Capxr) 225 mg PO HS ROSALEE Stop: 02/17/22 20:59 Last Admin: 01/18/22 20:10 Dose: 225 mg Documented by:
[2022-01-19] MEDS: ATORVASTATIN 20 MG TAB PO SCH (20:16)
[2022-01-19] MEDS: MONTELUKAST SODIUM 10 MG TABLET PO SCH (20:17)
[2022-01-19] MEDS: DOCUSATE SODIUM/SENNA 50/8.6MG TAB PO SCH (20:17)
[2022-01-19] MEDS: CALCIUM 600MG + VIT D 400 IU TAB PO SCH (20:17)
[2022-01-19] MEDS: VENLAFAXINE HCL XR 75 MG CAPXR PO SCH (20:18)
[2022-01-19] MEDS: PROPRANOLOL HCL LA 80 MG CAPCR PO SCH (20:20)
[2022-01-19] MEDS: BACLOFEN 20 MG TAB PO PRN (20:21)
[2022-01-20] MEDS: MoRPHine SULFATE 4 MG/ML 1 ML CARP\\VIAL IV PRN ×4 (00:15→20:49)
[2022-01-20] MEDS: oxyCODONE HCL IR 5 MG TAB (IMMEDIATE RELEASE) PO PRN ×6 (01:05→23:40)
[2022-01-20] MEDS: POLYETHYLENE (MIRALAX) 17 GM PACK PO SCH ×4 (05:01→20:50)
[2022-01-20] MEDS: LEVOTHYROXINE SODIUM 50 MCG TABLET PO SCH (05:01)
[2022-01-20] MEDS: LORazepam 0.5 MG TAB PO PRN ×2 (05:03→19:31)
[2022-01-20] MEDS: FLUTICASONE PROPIONATE NA SPR 16 GM BTL SCH (07:38)
[2022-01-20] MEDS: TAMSULOSIN HCL 0.4 MG CAP PO SCH (07:38)
[2022-01-20] MEDS: dexAMETHasone 6 MG in SYRINGE 0 ML IV SCH (07:39)
[2022-01-20] MEDS: FEXOFENADINE HCL 180 MG TAB PO SCH (07:39)
[2022-01-20] MEDS: busPIRone 5 MG TAB PO SCH ×3 (07:39→20:47)
[2022-01-20] MEDS: PANTOprazole 40 MG TAB PO SCH (07:39)
[2022-01-20] MEDS: GABAPENTIN 600 MG TAB PO SCH ×3 (07:39→20:48)
[2022-01-20] MEDS: MULTIVITAMIN TAB PO SCH (07:39)
--- NOTE | 2022-01-20 08:09 | Orthopedic Progress Note ---
Date of Service January 20, 2022 Assessment & Plan (1) Neurogenic claudication due to lumbar spinal stenosis: Plan: Sara is doing well postoperative day 2. We will continue with physical therapy and ambulation today. Continue with pain control. Maintain ASPEN drain. DVT prophylaxis in the form of teds and SCDs. Continue with aggressive bowel regimen. Anticipate discharge home tomorrow Admission and Anticipated Discharge Date Admission Date: January 18, 2022 Subjective Sara is postoperative day 2 hardware removal L4-S1 decompression L2-4 with instrumented fusion L2-5. She is had an uneventful evening. She complains of back pain. Reports leg symptoms are improved. ASPEN drain output last shift was 75 cc. Yesterday in physical therapy was ambling roughly 85 feet. She is passing flatus but no bowel movement yet. Review of Systems Review of Systems: All systems reviewed & are unremarkable except as noted in HPI & below Physical Exam Physical Exam: Alert and oriented x3 No acute distress Lumbar dressing is clean dry and intact with functioning ASPEN drain Calves soft nontender bilaterally Strength is intact bilateral lower extremities Results & Data ([facility]) Vital Signs (Past 12 Hours) Vital Signs Temp Pulse Pulse Resp BP Pulse Ox 01/20/22 08:01 36.7 C 70 18 120/90 94 01/19/22 22:14 37.2 C 72 16 92/52 L 97 01/19/22 20:19 82 98/63 L
[2022-01-20] MEDS: traMADol HCL 50 MG TABLET PO PRN ×2 (17:45→21:29)
--- NOTE | 2022-01-20 17:56 | Hospitalist Progress Note ---
Date of Service January 20, 2022 Assessment & Plan (1) Neurogenic claudication due to lumbar spinal stenosis: Plan: POD#2 L2-L4 decompression fusion, L4-S1 hardware removal by Dr. Umana activity and wound care orders as per ortho pain control with bowel regimen PT/OT monitor H/H for acute blood loss anemia and transfuse blood products PRN EBL 250 cc Remains stable likely discharge tomorrow Acute blood loss anemia in setting of postoperative state Preop Hemoglobin 13.2, hemoglobin 11.4 today Monitor ASPEN output We will get CBC tomorrow Leukocytosis Likely reactive in setting of surgery No Signs or symptoms of infection Medically stable to be discharged (2) Hypothyroidism: Plan: Continue levothyroxine (3) Mood disorder: (4) Fibromyalgia: Plan: Stable, continue home meds (5) Chronic migraine with aura: Plan: Continue propanolol prophylaxis (6) Renal calculi: Plan: History of, continue tamsulosin (7) HLD (hyperlipidemia): Plan: Continue statin (8) DVT prophylaxis: Plan: TEDs/SCDs as per spine Ortho Patient was seen and examined in collaboration with, Dr. Morris. Please see addendum Thank you for this consultation. We will follow the patient with you during their hospital stay. You can reach a member of the [facility] Hospitalist Team 16/04 [facility] [place] Text. Admission and Anticipated Discharge Date Admission Date: January 18, 2022 Subjective 01/20/2022 The patient was seen and examined in medical floor She denies any significant symptoms except minimal back pain Review of Systems Review of Systems: All systems reviewed and are unremarkable except as noted below Physical Exam Physical Exam: Lying in bed comfortably Constitutional: well developed, well nourished and + obese; not ill appearing Eyes: PERRL, conjunctivae normal, anicteric sclerae ENMT: external ear and nose normal, oropharynx normal Neck: trachea midline, no thyromegaly Respiratory: no respiratory distress Auscultation: lungs clear to auscultation bilaterally Cardiovascular: Rate/Rhythm: regular rate, regular rhythm and + tachycardic Heart Sounds: normal S1 and normal S2; no murmur Gastrointestinal (Abdomen): Inspection/Auscultation: normal bowel sounds; abdomen not distended Percussion/Palpation: abdomen soft; abdomen nontender Musculoskeletal: No acute arthritis in any joint Neurologic: Alert, awake and oriented x3. No focal sensory or no motor deficit appreciated Lymphatic: no cervical or axillary lymphadenopathy Results & Data Results & Data ([facility]) Vital Signs (Past 12 Hours) Vital Signs Temp Pulse Pulse Resp BP Pulse Ox 01/20/22 15:38 36.5 C 105 H 18 104/71 93 01/20/22 11:28 37.1 C 85 14 100/68 90 01/20/22 08:01 36.7 C 70 18 120/90 94 Medications Administered Current Inpatient Medications Acetaminophen (Acetaminophen 500 Mg Tab) 1,000 mg PO Q8H PRN PRN Reason: MILD Pain Scale 1,2,3 & Pre PT Stop: 02/17/22 17:42 Al Hydrox/Mg Hydrox/Simethicone (Aluminum/Magnesium Susp 30 Ml Udc) 30 ml PO Q6H PRN PRN Reason: Dyspepsia Stop: 02/17/22 17:42 Atorvastatin Calcium (Atorvastatin 20 Mg Tab) 20 mg PO QPM [facility] Stop: 02/17/22 20:59 Last Admin: 01/19/22 20:16 Dose: 20 mg Documented by: Baclofen (Baclofen 20 Mg Tab) 20 mg PO TID PRN PRN Reason: muscle spasm Stop: 02/18/22 13:59 Last Admin: 01/19/22 20:21 Dose: 20 mg Documented by: Bisacodyl (Bisacodyl 10 Mg Supp) 10 mg [place] DAILY PRN PRN Reason: Constipation Stop: 02/17/22 17:42 Buspirone HCl (Buspirone 5 Mg Tab) 10 mg PO TID [facility] Stop: 02/17/22 20:59 Last Admin: 01/20/22 13:14 Dose: 10 mg Documented by: Diphenhydramine HCl (Diphenhydramine Capsule 25 Mg Cap) 25 mg PO Q6H PRN PRN Reason: Allergic Rhinitis/Insomnia Stop: 02/17/22 17:42 Famotidine (Famotidine 20 Mg Tab) 20 mg PO Q12H PRN PRN Reason: Dyspepsia Stop: 02/17/22 17:42 Fexofenadine HCl (Fexofenadine Hcl 180 Mg Tab) 180 mg PO QAM [facility] Stop: 02/18/22 08:59 Last Admin: 01/20/22 07:39 Dose: 180 mg Documented by: Fluticasone Propionate (Fluticasone Propionate Na Spr 16 Gm Btl) 2 sprays NA QAM [facility] Stop: 02/18/22 08:59 Last Admin: 01/20/22 07:38 Dose: 2 sprays Documented by: Gabapentin (Gabapentin 600 Mg Tab) 1,200 mg PO TID [facility] Stop: 02/17/22 20:59 Last Admin: 01/20/22 13:14 Dose: 1,200 mg Documented by: Hydroxyzine HCl (Hydroxyzine Hcl 25 Mg Tab) 25 mg PO Q8H PRN PRN Reason: Anxiety Stop: 02/17/22 17:42 Promethazine HCl 12.5 mg/ (Sodium Chloride) 50.5 mls @ 202 mls/hr IV Q6H PRN PRN Reason: Nausea &/or Vomiting Stop: 02/17/22 17:42 Acetaminophen (Ofirmev) 1,000 mg in 100 mls @ 400 mls/hr IV Q8H PRN PRN Reason: Pain Rating 1-3 & Pre PT Stop: 01/21/22 17:42 Dexamethasone 6 mg/ Syringe 1.5 mls @ 1 mls/min IV DAILY [facility] Stop: 01/21/22 09:02 Last Admin: 01/20/22 07:39 Dose: 1 mls/min Documented by: Influenza Virus Vaccine Quadrival (Do Not Administer Flu Vaccine) 1 ea N/A PRN PRN PRN Reason: Notification Stop: 02/17/22 17:42 Levothyroxine Sodium (Levothyroxine Sodium 50 Mcg Tablet) 50 mcg PO DAILYBB [facility] Stop: 02/18/22 06:29 Last Admin: 01/20/22 05:01 Dose: 50 mcg Documented by: Lorazepam (Lorazepam 0.5 Mg Tab) 0.5 mg PO Q8H PRN PRN Reason: Sedation/Anxiety Stop: 02/17/22 17:42 Last Admin: 01/20/22 05:03 Dose: 0.5 mg Documented by: Lorazepam (Lorazepam 2 Mg/1 Ml Vial) 0.5 mg IV Q8H PRN PRN Reason: Sedation/Anxiety Stop: 02/17/22 17:42 Magnesium Hydroxide (Magnesium Hydroxide Susp 30 Ml Udc) 30 ml PO Q24H PRN PRN Reason: Constipation Stop: 02/17/22 17:42 Metoclopramide HCl (Metoclopramide Hcl Inj 5 Mg/Ml 2 Ml Vial) 10 mg IV Q6H PRN PRN Reason: Nausea &/or Vomiting Stop: 02/17/22 17:42 Miscellaneous (Naratriptan [Amerge] 2.5 Mg - Order Awaiting Action) 1 ea N/A QS [facility] Stop: 02/18/22 00:00 Last Admin: 01/20/22 15:31 Dose: Not Given Documented by: Montelukast Sodium (Montelukast Sodium 10 Mg Tablet) 10 mg PO QPM [facility] Stop: 02/17/22 20:59 Last Admin: 01/19/22 20:17 Dose: 10 mg Documented by: Morphine Sulfate (Morphine Sulfate 2 Mg/Ml Carp) 2 mg IV Q3H PRN PRN Reason: MODERATE Pain (Scale 4,5,6) & Pre PT Stop: 02/01/22 17:42 Morphine Sulfate (Morphine Sulfate 4 Mg/Ml 1 Ml Carp\Vial) 4 mg IV Q3H PRN PRN Reason: SEVERE Pain (Scale 7,8,9,10) Stop: 02/01/22 17:42 Last Admin: 01/20/22 11:25 Dose: 4 mg Documented by: Multivitamins (Multivitamin Tab) 1 tab PO QAM [facility] Stop: 02/18/22 08:59 Last Admin: 01/20/22 07:39 Dose: 1 tab Documented by: Multivitamins/Minerals (Calcium 600mg + Vit D 400 Iu Tab) 1 tab PO QPM [facility] Stop: 02/17/22 20:59 Last Admin: 01/19/22 20:17 Dose: 1 tab Documented by: Naloxone HCl (Naloxone Hcl 0.4 Mg/1 Ml Vial/Carp) 0.1 mg IV Q5M PRN PRN Reason: Oversedation/Resp depression Stop: 02/17/22 17:42 Ondansetron HCl (Ondansetron Inj 2 Mg/Ml 2 Ml Vial) 4 mg IV Q6H PRN PRN Reason: Nausea &/or Vomiting Stop: 02/17/22 17:42 Last Admin: 01/18/22 23:56 Dose: 4 mg Documented by: Ondansetron HCl (Ondansetron 4 Mg Od Tab) 4 mg PO Q6H PRN PRN Reason: Nausea Stop: 02/17/22 17:42 Oxycodone HCl (Oxycodone Hcl Ir 5 Mg Tab (Immediate Release)) 5 - 10 mg PO Q4H PRN PRN Reason: Pain & Pre PT Stop: 02/01/22 17:42 Last Admin: 01/20/22 15:36 Dose: 10 mg Documented by: Pantoprazole Sodium (Pantoprazole 40 Mg Tab) 40 mg PO QAM [facility] Stop: 02/18/22 08:59 Last Admin: 01/20/22 07:39 Dose: 40 mg Documented by: Pneumococcal Polyvalent Vaccine (Do Not Administer Pneumococcal Vaccine) 1 ea N/A PRN PRN PRN Reason: Notification Stop: 02/17/22 17:42 Polyethylene Glycol (Polyethylene (Miralax) 17 Gm Pack) 17 gm PO Q6 [facility] Stop: 02/18/22 05:59 Last Admin: 01/20/22 17:43 Dose: 17 gm Documented by: Propranolol HCl (Propranolol Hcl La 80 Mg Capcr) 160 mg PO HS [facility] Stop: 02/17/22 20:59 Last Admin: 01/19/22 20:20 Dose: Not Given Documented by: Senna/Docusate Sodium (Docusate Sodium/Senna 50/8.6mg Tab) 2 tab PO [facility] Stop: 02/17/22 20:59 Last Admin: 01/19/22 20:17 Dose: 2 tab Documented by: Sodium Biphosphate/Sodium Phosphate (Sod Phosphate/Sod Biphosphate Enema 132 Ml Btl) 132 ml SD ONE PRN PRN Reason: Constipation Stop: 02/17/22 17:42 Tamsulosin HCl (Tamsulosin Hcl 0.4 Mg Cap) 0.4 mg PO DAILY [facility] Stop: 02/18/22 08:59 Last Admin: 01/20/22 07:38 Dose: 0.4 mg Documented by: Tramadol HCl (Tramadol Hcl 50 Mg Tablet) 50 - 100 mg PO Q4H PRN PRN Reason: Moderate-Severe pain & Pre PT Stop: 02/17/22 17:42 Last Admin: 01/20/22 17:45 Dose: 100 mg Documented by: Venlafaxine HCl (Venlafaxine Hcl Xr 75 Mg Capxr) 225 mg PO [facility] Stop: 02/17/22 20:59 Last Admin: 01/19/22 20:18 Dose: 225 mg Documented by:
[2022-01-20] MEDS: ATORVASTATIN 20 MG TAB PO SCH (20:47)
[2022-01-20] MEDS: VENLAFAXINE HCL XR 75 MG CAPXR PO SCH (20:48)
[2022-01-20] MEDS: MONTELUKAST SODIUM 10 MG TABLET PO SCH (20:48)
[2022-01-20] MEDS: DOCUSATE SODIUM/SENNA 50/8.6MG TAB PO SCH (20:48)
[2022-01-20] MEDS: CALCIUM 600MG + VIT D 400 IU TAB PO SCH (20:48)
[2022-01-20] MEDS: PROPRANOLOL HCL LA 80 MG CAPCR PO SCH (20:51)
[2022-01-20] MEDS: BACLOFEN 20 MG TAB PO PRN (21:28)
[2022-01-21] MEDS: traMADol HCL 50 MG TABLET PO PRN ×3 (01:05→09:54)
[2022-01-21] MEDS: MoRPHine SULFATE 4 MG/ML 1 ML CARP\\VIAL IV PRN (02:04)
[2022-01-21] MEDS: LORazepam 0.5 MG TAB PO PRN ×2 (03:33→11:07)
[2022-01-21] MEDS: oxyCODONE HCL IR 5 MG TAB (IMMEDIATE RELEASE) PO PRN ×3 (03:33→11:07)
[2022-01-21] MEDS: LEVOTHYROXINE SODIUM 50 MCG TABLET PO SCH (05:25)
[2022-01-21] MEDS: POLYETHYLENE (MIRALAX) 17 GM PACK PO SCH ×2 (05:25→11:08)
[2022-01-21 06:07] LABS: Basophils # (auto) 0.02 K/uL (0-0.2); Basophils % (auto) 0.2 %; Eosinophils # (auto) 0.03 K/uL (0-0.5); Eosinophils % (auto) 0.3 %; Hematocrit (blood only) 34.4 % (37-47); Immature Granulocytes # (auto) 0.03 K/uL (0.00-0.02); Immature Granulocytes % (auto) 0.3 %; Lymphocytes # (auto) 3.03 K/uL (1.2-3.4); Lymphocytes % (auto) 27.7 %; Mean Corpuscular Hemoglobin 30.2 pg (25-34); Mean Corpuscular Volume 94.5 fL (80-100); Mean Platelet Volume 8.6 fL (7.4-10.4); Monocytes % (auto) 8.2 %; Neutrophils # (auto) 6.91 K/uL (1.4-6.5); Neutrophils % (auto) 63.3 %; Platelet Count 362 K/uL (130-400); RDW Coefficient of Variation 12.5 % (11.5-14.5); RDW Standard Deviation 43.1 fL (36.4-46.3); Red Blood Count 3.64 M/uL (4.2-5.4); White Blood Count 10.92 K/uL (4.8-10.8)
[2022-01-21] MEDS: busPIRone 5 MG TAB PO SCH (07:38)
[2022-01-21] MEDS: dexAMETHasone 6 MG in SYRINGE 0 ML IV SCH (07:38)
[2022-01-21] MEDS: FEXOFENADINE HCL 180 MG TAB PO SCH (07:38)
[2022-01-21] MEDS: GABAPENTIN 600 MG TAB PO SCH (07:38)
[2022-01-21] MEDS: MULTIVITAMIN TAB PO SCH (07:39)
[2022-01-21] MEDS: TAMSULOSIN HCL 0.4 MG CAP PO SCH (07:39)
[2022-01-21] MEDS: FLUTICASONE PROPIONATE NA SPR 16 GM BTL SCH (07:39)
[2022-01-21] MEDS: PANTOprazole 40 MG TAB PO SCH (07:39)
--- NOTE | 2022-01-21 07:51 | Discharge Summary ---
Date of Service January 21, 2022 Admission HPI Per Admitting Provider This is a 41-year-old female who presents with chronic persistent back and leg pain. Failing course of nonoperative care is here for surgical invention. Admission Exam (Per Admitting) Constitutional WD/WN, vitals as above Eyes normal visual crowley by confrontation Neck normal visual inspection Respiratory normal respiratory effort Cardiovascular Extremities: normal capillary refill Gastrointestinal (Abdomen) Inspection/Auscultation: abdomen normal to inspection Musculoskeletal Extremities: extremities normal to inspection Skin no rashes, warm and dry Neurologic normal touch/pain/proprioception and moves all extremities Psychiatric A+Ox3, euthymic affect Discharge Data Consultations 01/18/22 17:43 Consult Hospitalist Routine Procedures Performed Operation Date: 01/18/22 12:25 Actual Procedures p L2-L4 Decompression and Fusion, Spinal Cord Monitoring(Not Applicable) - Daniel Umana DO s L4-S1 Hardware Removal,(Not Applicable) - Daniel Umana DO Hospital Course (1) Neurogenic claudication due to lumbar spinal stenosis: Sara is being discharged home on postoperative day 3 status post hard removal L4-S1 decompression L2-4 with instrumented fusion L2-5. She is done well postoperatively. Hospital course has been uneventful. Pain is been controlled. She is made great progress in physical therapy. Lab values have been stable.
--- NOTE | 2022-01-21 12:26 | Hospitalist Progress Note ---
Date of Service January 21, 2022 Assessment & Plan (1) Neurogenic claudication due to lumbar spinal stenosis: Plan: POD#3 L2-L4 decompression fusion, L4-S1 hardware removal by Dr. Umana activity and wound care orders as per ortho pain control with bowel regimen PT/OT monitor H/H for acute blood loss anemia and transfuse blood products PRN EBL 250 cc Remains stable likely discharge tomorrow Denies any significant symptoms Acute blood loss anemia in setting of postoperative state Preop Hemoglobin 13.2, hemoglobin 11.4 today Monitor ASPEN output We will get CBC tomorrow-hemoglobin remained stable Leukocytosis Likely reactive in setting of surgery No Signs or symptoms of infection Leukocytosis is resolved Medically stable to be discharged (2) Hypothyroidism: Plan: Continue levothyroxine (3) Mood disorder: (4) Fibromyalgia: Plan: Stable, continue home meds (5) Chronic migraine with aura: Plan: Continue propanolol prophylaxis (6) Renal calculi: Plan: History of, continue tamsulosin (7) HLD (hyperlipidemia): Plan: Continue statin (8) DVT prophylaxis: Plan: TEDs/SCDs as per spine Ortho Patient was seen and examined in collaboration with, Dr. Morris. Please see addendum Thank you for this consultation. We will follow the patient with you during their hospital stay. You can reach a member of the [facility] Hospitalist Team 16/04 via the [facility] Hospitalist role in [place] Text. Admission and Anticipated Discharge Date Admission Date: January 18, 2022 Subjective 01/20/2022 The patient was seen and examined in medical floor She denies any significant symptoms except minimal back pain 01/21/2022 The patient was seen and examined in medical floor She complains to have minimal pain at the back without any radiation She will be discharged home today Review of Systems Review of Systems: All systems reviewed and are unremarkable except as noted below Physical Exam Physical Exam: Lying in bed comfortably Constitutional: well developed, well nourished and + obese; not ill appearing Eyes: PERRL, conjunctivae normal, anicteric sclerae ENMT: external ear and nose normal, oropharynx normal Neck: trachea midline, no thyromegaly Respiratory: no respiratory distress Auscultation: lungs clear to auscultation bilaterally Cardiovascular: Rate/Rhythm: regular rate, regular rhythm and + tachycardic Heart Sounds: normal S1 and normal S2; no murmur Gastrointestinal (Abdomen): Inspection/Auscultation: normal bowel sounds; abdomen not distended Percussion/Palpation: abdomen soft; abdomen nontender Musculoskeletal: No acute arthritis in any of the joints Neurologic: normal touch/pain/proprioception Psychiatric: A+Ox3, euthymic affect Lymphatic: no cervical or axillary lymphadenopathy Results & Data Results & Data ([facility]) Vital Signs (Past 12 Hours) Vital Signs Temp Pulse Resp BP Pulse Ox 01/21/22 12:03 36.6 C 80 16 119/72 96 01/21/22 08:34 36.6 C 80 16 119/72 96 Laboratory Results Short CBC 01/21/22 Range/Units 05:43 WBC 10.92 H (4.8-10.8) K/uL Hgb 11.0 L (12.0-16.0) g/dL Hct 34.4 L (37-47) % Plt Count 362 (130-400) K/uL Medications Administered Current Inpatient Medications Acetaminophen (Acetaminophen 500 Mg Tab) 1,000 mg PO Q8H PRN PRN Reason: MILD Pain Scale 1,2,3 & Pre PT Stop: 02/17/22 17:42 Last Admin: 01/21/22 07:37 Dose: 1,000 mg Documented by: Al Hydrox/Mg Hydrox/Simethicone (Aluminum/Magnesium Susp 30 Ml Udc) 30 ml PO Q6H PRN PRN Reason: Dyspepsia Stop: 02/17/22 17:42 Atorvastatin Calcium (Atorvastatin 20 Mg Tab) 20 mg PO QPM [facility] Stop: 02/17/22 20:59 Last Admin: 01/20/22 20:47 Dose: 20 mg Documented by: Baclofen (Baclofen 20 Mg Tab) 20 mg PO TID PRN PRN Reason: muscle spasm Stop: 02/18/22 13:59 Last Admin: 01/20/22 21:28 Dose: 20 mg Documented by: Bisacodyl (Bisacodyl 10 Mg Supp) 10 mg [place] DAILY PRN PRN Reason: Constipation Stop: 02/17/22 17:42 Buspirone HCl (Buspirone 5 Mg Tab) 10 mg PO TID [facility] Stop: 02/17/22 20:59 Last Admin: 01/21/22 07:38 Dose: 10 mg Documented by: Diphenhydramine HCl (Diphenhydramine Capsule 25 Mg Cap) 25 mg PO Q6H PRN PRN Reason: Allergic Rhinitis/Insomnia Stop: 02/17/22 17:42 Famotidine (Famotidine 20 Mg Tab) 20 mg PO Q12H PRN PRN Reason: Dyspepsia Stop: 02/17/22 17:42 Fexofenadine HCl (Fexofenadine Hcl 180 Mg Tab) 180 mg PO QAM [facility] Stop: 02/18/22 08:59 Last Admin: 01/21/22 07:38 Dose: 180 mg Documented by: Fluticasone Propionate (Fluticasone Propionate Na Spr 16 Gm Btl) 2 sprays NA QAM [facility] Stop: 02/18/22 08:59 Last Admin: 01/21/22 07:39 Dose: 2 sprays Documented by: Gabapentin (Gabapentin 600 Mg Tab) 1,200 mg PO TID [facility] Stop: 02/17/22 20:59 Last Admin: 01/21/22 07:38 Dose: 1,200 mg Documented by: Hydroxyzine HCl (Hydroxyzine Hcl 25 Mg Tab) 25 mg PO Q8H PRN PRN Reason: Anxiety Stop: 02/17/22 17:42 Promethazine HCl 12.5 mg/ (Sodium Chloride) 50.5 mls @ 202 mls/hr IV Q6H PRN PRN Reason: Nausea &/or Vomiting Stop: 02/17/22 17:42 Acetaminophen (Ofirmev) 1,000 mg in 100 mls @ 400 mls/hr IV Q8H PRN PRN Reason: Pain Rating 1-3 & Pre PT Stop: 01/21/22 17:42 Influenza Virus Vaccine Quadrival (Do Not Administer Flu Vaccine) 1 ea N/A PRN PRN PRN Reason: Notification Stop: 02/17/22 17:42 Levothyroxine Sodium (Levothyroxine Sodium 50 Mcg Tablet) 50 mcg PO DAILYBB [facility] Stop: 02/18/22 06:29 Last Admin: 01/21/22 05:25 Dose: 50 mcg Documented by: Lorazepam (Lorazepam 0.5 Mg Tab) 0.5 mg PO Q8H PRN PRN Reason: Sedation/Anxiety Stop: 02/17/22 17:42 Last Admin: 01/21/22 11:07 Dose: 0.5 mg Documented by: Lorazepam (Lorazepam 2 Mg/1 Ml Vial) 0.5 mg IV Q8H PRN PRN Reason: Sedation/Anxiety Stop: 02/17/22 17:42 Magnesium Hydroxide (Magnesium Hydroxide Susp 30 Ml Udc) 30 ml PO Q24H PRN PRN Reason: Constipation Stop: 02/17/22 17:42 Metoclopramide HCl (Metoclopramide Hcl Inj 5 Mg/Ml 2 Ml Vial) 10 mg IV Q6H PRN PRN Reason: Nausea &/or Vomiting Stop: 02/17/22 17:42 Miscellaneous (Naratriptan [Amerge] 2.5 Mg - Order Awaiting Action) 1 ea N/A QS [facility] Stop: 02/18/22 00:00 Last Admin: 01/21/22 07:37 Dose: Not Given Documented by: Montelukast Sodium (Montelukast Sodium 10 Mg Tablet) 10 mg PO QPM [facility] Stop: 02/17/22 20:59 Last Admin: 01/20/22 20:48 Dose: 10 mg Documented by: Morphine Sulfate (Morphine Sulfate 2 Mg/Ml Carp) 2 mg IV Q3H PRN PRN Reason: MODERATE Pain (Scale 4,5,6) & Pre PT Stop: 02/01/22 17:42 Morphine Sulfate (Morphine Sulfate 4 Mg/Ml 1 Ml Carp\Vial) 4 mg IV Q3H PRN PRN Reason: SEVERE Pain (Scale 7,8,9,10) Stop: 02/01/22 17:42 Last Admin: 01/21/22 02:04 Dose: 4 mg Documented by: Multivitamins (Multivitamin Tab) 1 tab PO QAM [facility] Stop: 02/18/22 08:59 Last Admin: 01/21/22 07:39 Dose: 1 tab Documented by: Multivitamins/Minerals (Calcium 600mg + Vit D 400 Iu Tab) 1 tab PO QPM [facility] Stop: 02/17/22 20:59 Last Admin: 01/20/22 20:48 Dose: 1 tab Documented by: Naloxone HCl (Naloxone Hcl 0.4 Mg/1 Ml Vial/Carp) 0.1 mg IV Q5M PRN PRN Reason: Oversedation/Resp depression Stop: 02/17/22 17:42 Ondansetron HCl (Ondansetron Inj 2 Mg/Ml 2 Ml Vial) 4 mg IV Q6H PRN PRN Reason: Nausea &/or Vomiting Stop: 02/17/22 17:42 Last Admin: 01/18/22 23:56 Dose: 4 mg Documented by: Ondansetron HCl (Ondansetron 4 Mg Od Tab) 4 mg PO Q6H PRN PRN Reason: Nausea Stop: 02/17/22 17:42 Oxycodone HCl (Oxycodone Hcl Ir 5 Mg Tab (Immediate Release)) 5 - 10 mg PO Q4H PRN PRN Reason: Pain & Pre PT Stop: 02/01/22 17:42 Last Admin: 01/21/22 11:07 Dose: 10 mg Documented by: Pantoprazole Sodium (Pantoprazole 40 Mg Tab) 40 mg PO QAM [facility] Stop: 02/18/22 08:59 Last Admin: 01/21/22 07:39 Dose: 40 mg Documented by: Pneumococcal Polyvalent Vaccine (Do Not Administer Pneumococcal Vaccine) 1 ea N/A PRN PRN PRN Reason: Notification Stop: 02/17/22 17:42 Polyethylene Glycol (Polyethylene (Miralax) 17 Gm Pack) 17 gm PO Q6 [facility] Stop: 02/18/22 05:59 Last Admin: 01/21/22 11:08 Dose: 17 gm Documented by: Propranolol HCl (Propranolol Hcl La 80 Mg Capcr) 160 mg PO HS [facility] Stop: 02/17/22 20:59 Last Admin: 01/20/22 20:51 Dose: Not Given Documented by: Senna/Docusate Sodium (Docusate Sodium/Senna 50/8.6mg Tab) 2 tab PO HS [facility] Stop: 02/17/22 20:59 Last Admin: 01/20/22 20:48 Dose: 2 tab Documented by: Sodium Biphosphate/Sodium Phosphate (Sod Phosphate/Sod Biphosphate Enema 132 Ml Btl) 132 ml [place] ONE PRN PRN Reason: Constipation Stop: 02/17/22 17:42 Tamsulosin HCl (Tamsulosin Hcl 0.4 Mg Cap) 0.4 mg PO DAILY [facility] Stop: 02/18/22 08:59 Last Admin: 01/21/22 07:39 Dose: 0.4 mg Documented by: Tramadol HCl (Tramadol Hcl 50 Mg Tablet) 50 - 100 mg PO Q4H PRN PRN Reason: Moderate-Severe pain & Pre PT Stop: 02/17/22 17:42 Last Admin: 01/21/22 09:54 Dose: 100 mg Documented by: Venlafaxine HCl (Venlafaxine Hcl Xr 75 Mg Capxr) 225 mg PO HS [facility] Stop: 02/17/22 20:59 Last Admin: 01/20/22 20:48 Dose: 225 mg Documented by:
== END 2022-01-21 12:51 | disposition home or self-care (01) | DRG 454 ==
LOC: ASU 10:51 → 3E 15:41